=== PATIENT | female | born 1955 | race Caucasian/White ===

== ENCOUNTER 2018-04-01 11:07 | Observation (INO) | payer OTHER ==
[2018-04-01 11:48] LABS: Absolute Lymphocytes (CBC) 2.3 K/uL (0.7-4.9); Absolute Monocytes 0.2 K/uL (0.1-1.3); Absolute Neutrophil 6.1 K/uL (1.8-8.0); Basophils % 0.8 % (0-1.3); Eosinophils % 2.4 % (0-4.4); Hematocrit 41.6 % (36.0-45.0); Lymphocytes % 25.9 % (15.3-44.8); MCH 32.6 pg (27.0-35.0); MCV 94.5 fL (80-100); MPV 7.7 fL (7.6-11.3); Monocytes % 2.5 % (3.3-12.3)
[2018-04-01 12:01] LABS: Protime INR 1.01
--- NOTE | 2018-04-01 12:12 | EKG ---
Test Date: 2018-04-01 Test Time: 11:18:00 Technical Consultant: CATHIE MEASUREMENT RESULTS: Intervals: Rate: 71 GA: 152 QRSD: 90 QT: 408 QTc: 443 Cerrillos: P: 68 GA: 152 QRS: 60 T: 22 INTERPRETIVE STATEMENTS: Normal sinus rhythm Normal ECG Compared to ECG 05/24/2017 11:54:23 No significant changes Electronically Signed On 04-01-18 12:11:49 CDT by Cali Zhang
[2018-04-01 12:18] LABS: ALT/SGPT 18 U/L (12-78); AST/SGOT 16 U/L (15-37); Albumin 3.1 g/dL (3.4-5.0); Alkaline Phosphatase 80 U/L (45-117); BUN Blood Urea Nitrogen 9 mg/dL (7-18); Bicarbonate 27 mmol/L (21-32); Bilirubin Direct 0.1 mg/dL (0-0.2); Bilirubin Total 0.4 mg/dL (0.2-1.0); CKMB Creatine Kinase MB < 1.0 ng/mL (0.3-3.6); Creatine Phosphokinase 32 U/L (26-192); Glucose Level 154 mg/dL (74-106); Magnesium 1.9 mg/dL (1.8-2.4); NT PRO-BNP 131 pg/mL (<125); Potassium 3.5 mmol/L (3.5-5.1); Protein, Total 7.2 g/dL (6.4-8.2); Sodium Level 137 mmol/L (136-145)
--- NOTE | 2018-04-01 12:18 | RAD REPORT ---
EXAM DESCRIPTION: RAD - Chest Single View - 04/01/2018 12:01 pm CLINICAL HISTORY: CHEST PAIN Chest pain. COMPARISON: Chest Pa And Lat (2 Views) dated 07/09/2017; Chest Single View dated 05/28/2017; Chest S korina View dated 05/26/2017; Chest Single View dated 05/24/2017; Ct Low Dose Chest Screening dated FINDINGS: Portable technique limits examination quality. The lungs are grossly clear. The heart is mildly prominent size. No displaced fractures. IMPRESSION: No acute intrathoracic process suspected.
[2018-04-01] MEDS ORDERED: METHYLPREDNISOLONE 125 MG INJ ONE (13:10)
[2018-04-01] MEDS ORDERED: LEVALBUTEROL 1.25 MG/3 ML NEB ONE (13:11)
[2018-04-01] MEDS ORDERED: MAGNESIUM SULFATE 1 gm IVPB 1 GM/100 ML BAG IV ONE (13:11)
[2018-04-01] MEDS ORDERED: CEFTRIAXONE/SWI 1gm 1 GM/10 ML SYR ONE (13:11)
[2018-04-01] MEDS ORDERED: MEPERIDINE HCL 25 MG/0.5 ML ONE ×2 (13:47→16:55)
[2018-04-01] MEDS ORDERED: ONDANSETRON 4 MG/2 ML VIAL ONE (13:47)
--- NOTE | 2018-04-01 15:03 | ER ---
Nurse's Notes [facility] Name: Kary Day Age: 63 yrs Sex: Female : 1955 Arrival Date: 04/01/2018 Time: 11:11 Bed 25 Private MD: Jude Sandra T Diagnosis: COPD Exacerbation, shortness of breath Presentation: 04/01 11:15 Presenting complaint: Patient states: I HAD BAD CHEST PAINS AT 2330 LAST NIGHT, ch SWEATING, NAUSEA. I TOOK MY NITRO AND IT HELPED. RIGHT NOW I AM HAVING SOB, DIZZY, NAUSEOUS, FEEL LIKE AND KIM PANT IS ON MY CHEST, MY BACK AND ARM HURT. Transition of care: patient was not received from another setting of care. Onset of symptoms was March 31, 2018 at 23:30. Risk Assessment: Do you want to hurt yourself or someone else? Patient reports no desire to harm self or others. Initial Sepsis Screen: Does the patient meet any 2 criteria? No. Patient's initial sepsis screen is negative. Does the patient have a suspected source of infection? No. Patient's initial sepsis screen is negative. Care prior to arrival: None. 11:15 Method Of Arrival: Wheelchair 11:15 Acuity: ISACC 2 ch Triage Assessment: 11:18 General: Appears in no apparent distress. uncomfortable, Behavior is calm, cooperative, ch appropriate for age. Pain: Complains of pain in left jaw and chest. Neuro: No deficits noted. Respiratory: Reports shortness of breath Onset: The symptoms/episode began/occurred yesterday, the patient has moderate shortness of breath. Historical: - Allergies: 11:18 Paxil; ch 11:18 Tetanus Vaccines \\T\\ Toxoid; ch 11:18 Zoloft; ch 11:18 Levaquin IV; ch - PMHx: 11:18 Anxiety; CHF; COPD; CVA; Hypertension; Myocardial infarction; precancerous colon ch polyps; CANCER OF APPENDIX; - PSHx: 11:18 Cholecystectomy; Appendectomy; ch - Immunization history:: Adult Immunizations up to date. - Social history:: Smoking status: Patient uses tobacco products, smokes two packs cigarettes per day. - Ebola Screening: : Patient negative for fever greater than or equal to 101.5 degrees Fahrenheit, and additional compatible Ebola Virus Disease symptoms Patient denies exposure to infectious person Patient denies travel to an Ebola-affected area in the 21 days before illness onset No symptoms or risks identified at this time. Screenin:25 Abuse screen: Denies threats or abuse. Denies injuries from another. Nutritional ss screening: No deficits noted. Tuberculosis screening: Never had TB. Fall Risk None identified. Assessment: 12:25 General: Appears in no apparent distress. comfortable, Behavior is calm, cooperative, ss Denies fever, feeling ill, fatigue, chills. Pain: Complains of pain in chest Pain radiates to left arm Pain currently is 3 out of 10 on a pain scale. at worst was 7 out of 10 on a pain scale. Quality of pain is described as aching, tender, Pain began last night, relieved with nitro x 1. Pt states, "I was finally able to go to sleep last night, but when I woke up this morning I was still sore from it and just short of breath." Is continuous. Neuro: Level of Consciousness is awake, alert, obeys commands, Oriented to person, place, time, situation, Speech is normal. Cardiovascular: Rhythm is sinus rhythm. Cardiovascular: Heart tones S1 S2 present Edema is absent. Respiratory: Breath sounds with wheezes bilaterally. Pt has a history of COPD, reports a cough that has been worse lately, is productive. Has been on oral antibiotic therapy and steroids x 6 days for bronchitis. Respiratory: Airway is patent Trachea midline Respiratory effort is even, unlabored, Respiratory pattern is regular, symmetrical. GI: Patient currently denies abdominal pain, diarrhea, vomiting. EENT: Nares are clear Oral mucosa is moist. Derm: Skin is intact, is healthy with good turgor, Skin is dry, Skin is pink, warm \\T\\ dry. normal. Musculoskeletal: Circulation, motion, and sensation intact. Range of motion: intact in all extremities, Swelling absent. 13:30 Reassessment: Patient appears in no apparent distress at this time. Patient and/or kr2 family updated on plan of care and expected duration. Pain level reassessed. Patient is alert, oriented x 3, equal unlabored respirations, skin warm/dry/pink. Patient states feeling better. 14:30 Reassessment: Patient appears in no apparent distress at this time. Patient and/or kr2 family updated on plan of care and expected duration. Pain level reassessed. Patient is alert, oriented x 3, equal unlabored respirations, skin warm/dry/pink. Patient denies pain at this time. 15:30 Reassessment: Patient appears in no apparent distress at this time. Patient is alert, kr2 oriented x 3, equal unlabored respirations, skin warm/dry/pink. 16:29 Reassessment: Patient appears in no apparent distress at this time. Patient and/or kr2 family updated on plan of care and expected duration. Pain level reassessed. Patient is alert, oriented x 3, equal unlabored respirations, skin warm/dry/pink. Patient denies pain at this time. 16:56 Reassessment: Patient complains of returning headache, reported to Dr. Silver, kr2 medicated as ordered, see MAR. 18:30 Reassessment: Patient appears in no apparent distress at this time. Patient and/or kr2 family updated on plan of care and expected duration. Pain level reassessed. Patient is alert, oriented x 3, equal unlabored respirations, skin warm/dry/pink. Patient denies pain at this time. 19:27 Reassessment: Patient appears in no apparent distress at this time. Patient and/or kr2 family updated on plan of care and expected duration. Pain level reassessed. Patient is alert, oriented x 3, equal unlabored respirations, skin warm/dry/pink. Patient denies pain at this time. 20:00 Reassessment: Patient appears in no apparent distress at this time. Patient and/or kr2 family updated on plan of care and expected duration. Pain level reassessed. Patient is alert, oriented x 3, equal unlabored respirations, skin warm/dry/pink. Patient denies pain at this time. Vital Signs: 11:18 BP 116 / 71; Pulse 74; Resp 26; Temp 97.8; Pulse Ox 94% on R/A; Weight 85.28 kg; Height ch 5 ft. 3 in. (160.02 cm); Pain 7/10; 12:30 BP 108 / 60; Pulse 74; Resp 18; Temp 98.8(O); ss 13:30 BP 112 / 54; Pulse 74; Resp 17; Pulse Ox 97% on R/A; kr2 14:30 BP 114 / 69; Pulse 85; Resp 17; Pulse Ox 88% on R/A; kr2 15:30 BP 114 / 64; Pulse 82; Resp 17; Pulse Ox 95% on 2 lpm NC; kr2 16:28 BP 124 / 66; Pulse 81; Resp 19; Pulse Ox 95% on 2 lpm NC; kr2 19:27 BP 124 / 68; Pulse 75; Resp 17; Pulse Ox 95% on 2 lpm NC; kr2 20:15 BP 110 / 68; Pulse 86; Resp 19; Pulse Ox 95% on 2 lpm NC; kr2 11:18 Body Mass Index 33.30 (85.28 kg, 160.02 cm) ch 14:30 Place on NC \\T\\ 2LPM, sat up to 95% kr2 ED Course: 11:11 Patient arrived in ED. sb2 11:12 Jude Sandra MD is Private Physician. sb2 11:17 Triage completed. ch 11:18 Arm band placed on left wrist. Patient placed in waiting room. ch 11:34 EKG done, by electrophysiology technologist. vh 11:42 Initial lab(s) drawn, by oh, sent to lab. Inserted saline lock: 20 gauge in right ch antecubital area, using aseptic technique. Blood collected. 12:00 X-ray completed. Portable x-ray completed in exam room. Patient tolerated procedure mh1 well. 12:00 XRAY Chest (1 view) In Process Unspecified. EDMS 12:13 New Silver MD is Attending Physician. kdr 12:25 Shena Greenberg, AUBREY is Primary Nurse. ss 12:25 Patient has correct armband on for positive identification. Bed in low position. Call ss light in reach. Side rails up X2. pit slagman on. Pulse ox on. NIBP on. Warm blanket given. 15:02 Tesfaye Babb DO is Hospitalizing Provider. kdr 20:27 No provider procedures requiring assistance completed. Patient admitted, IV remains in kr2 place. Administered Medications: 13:15 Drug: SOLU-Medrol 125 mg Route: IVP; Site: right antecubital; kr2 14:00 Follow up: Response: No adverse reaction kr2 13:23 Drug: Xopenex (3) 1.25 mg Route: Inhalation; kr2 15:00 Follow up: Response: No adverse reaction; Marked relief of symptoms kr2 13:23 Drug: Magnesium Sulfate 1 grams Route: IVPB; Infused Over: 1 hrs; Site: right kr2 antecubital; 14:38 Follow up: IV Status: Completed infusion kr2 13:23 Drug: Rocephin - (cefTRIAXone) 1 grams Route: IVPB; Infused Over: 30 mins; Site: right kr2 antecubital; 20:30 Follow up: Response: No adverse reaction; IV Status: Completed infusion kr2 13:45 Drug: Zofran 4 mg Route: IVP; Site: right antecubital; kr2 15:00 Follow up: Response: No adverse reaction kr2 13:48 Drug: Demerol 25 mg Route: IVP; Site: right antecubital; kr2 14:00 Follow up: Response: No adverse reaction; Pain is decreased kr2 16:55 Drug: Demerol 25 mg Route: IVP; Site: right antecubital; kr2 17:15 Follow up: Response: No adverse reaction; Pain is decreased kr2 Outcome: 15:03 Decision to Hospitalize by Provider. kdr 20:27 Admitted to Med/surg accompanied by tech, via stretcher, room 215, with oxygen, with kr2 chart, Report called to Janice 20:27 Condition: stable 20:27 Instructed on the need for admit, Demonstrated understanding of instructions. 20:31 Patient left the ED. kr2 Signatures: Dispatcher [employer] EDMS Medina Pizarro, RN RN New Silver MD MD [facility] Joycelyn Bingham 1 Shena Greenberg RN RN ss Harrell, Venessa vh Reaves, Karey, RN RN kr2 Alexia Mccabe sb2 Corrections: (The following items were deleted from the chart) 20:30 14:00 Response: No adverse reaction kr2 kr2
--- NOTE | 2018-04-01 15:03 | EDPHYS ---
Physician Documentation [facility] Name: Kary Day Age: 63 yrs Sex: Female : 1955 Arrival Date: 04/01/2018 Time: 11:11 Bed 25 Private MD: Jude Sandra T ED Physician New Silver Historical: - Allergies: 04/01 11:18 Paxil; ch 11:18 Tetanus Vaccines \T\ Toxoid; ch 11:18 Zoloft; ch 11:18 Levaquin IV; ch - PMHx: 11:18 Anxiety; CHF; COPD; CVA; Hypertension; Myocardial infarction; precancerous colon ch polyps; CANCER OF APPENDIX; - PSHx: 11:18 Cholecystectomy; Appendectomy; ch - Immunization history:: Adult Immunizations up to date. - Social history:: Smoking status: Patient uses tobacco products, smokes two packs cigarettes per day. - Ebola Screening: : Patient negative for fever greater than or equal to 101.5 degrees Fahrenheit, and additional compatible Ebola Virus Disease symptoms Patient denies exposure to infectious person Patient denies travel to an Ebola-affected area in the 21 days before illness onset No symptoms or risks identified at this time. Vital Signs: 11:18 BP 116 / 71; Pulse 74; Resp 26; Temp 97.8; Pulse Ox 94% on R/A; Weight 85.28 kg; Height ch 5 ft. 3 in. (160.02 cm); Pain 7/10; 12:30 BP 108 / 60; Pulse 74; Resp 18; Temp 98.8(O); ss 13:30 BP 112 / 54; Pulse 74; Resp 17; Pulse Ox 97% on R/A; kr2 14:30 BP 114 / 69; Pulse 85; Resp 17; Pulse Ox 88% on R/A; kr2 15:30 BP 114 / 64; Pulse 82; Resp 17; Pulse Ox 95% on 2 lpm NC; kr2 16:28 BP 124 / 66; Pulse 81; Resp 19; Pulse Ox 95% on 2 lpm NC; kr2 19:27 BP 124 / 68; Pulse 75; Resp 17; Pulse Ox 95% on 2 lpm NC; kr2 20:15 BP 110 / 68; Pulse 86; Resp 19; Pulse Ox 95% on 2 lpm NC; kr2 11:18 Body Mass Index 33.30 (85.28 kg, 160.02 cm) ch 14:30 Place on NC \T\ 2LPM, sat up to 95% kr2 MDM: 15:03 Patient medically screened. kdr 04/01 11:20 Order name: Basic Metabolic Panel; Complete Time: 12:28 04/01 11:20 Order name: CBC with Diff; Complete Time: 12:14 04/01 11:20 Order name: Ckmb; Complete Time: 12:28 04/01 11:20 Order name: CPK; Complete Time: 12:28 04/01 11:20 Order name: LFT's; Complete Time: 12:28 04/01 11:20 Order name: Magnesium; Complete Time: 12:28 04/01 11:20 Order name: NT PRO-BNP; Complete Time: 12:28 04/01 11:20 Order name: PT-INR; Complete Time: 12:14 04/01 11:20 Order name: Ptt, Activated; Complete Time: 12:14 04/01 11:20 Order name: Troponin (emerg Dept Use Only); Complete Time: 14:37 04/01 11:20 Order name: XRAY Chest (1 view); Complete Time: 12:28 04/01 12:35 Order name: Blood Culture Adult (2) kdr 04/01 14:23 Order name: Urine Dipstick--Ancillary (enter results) bd 04/01 11:20 Order name: EKG; Complete Time: 11:21 04/01 11:20 Order name: EKG - Nurse/Tech; Complete Time: 13:53 04/01 11:20 Order name: Cardiac monitoring; Complete Time: 13:52 04/01 11:20 Order name: IV Saline Lock; Complete Time: 13:52 04/01 11:20 Order name: Labs collected and sent; Complete Time: 13:52 04/01 11:20 Order name: O2 Per Protocol; Complete Time: 13:52 04/01 11:20 Order name: O2 Sat Monitoring; Complete Time: 13:52 04/01 11:20 Order name: Urine Dipstick-Ancillary (obtain specimen); Complete Time: 16:44 04/01 18:17 Order name: Diet Heart Healthy; Complete Time: 18:17 kr2 Administered Medications: 13:15 Drug: SOLU-Medrol 125 mg Route: IVP; Site: right antecubital; kr2 14:00 Follow up: Response: No adverse reaction kr2 13:23 Drug: Xopenex (3) 1.25 mg Route: Inhalation; kr2 15:00 Follow up: Response: No adverse reaction; Marked relief of symptoms kr2 13:23 Drug: Magnesium Sulfate 1 grams Route: IVPB; Infused Over: 1 hrs; Site: right kr2 antecubital; 14:38 Follow up: IV Status: Completed infusion kr2 13:23 Drug: Rocephin - (cefTRIAXone) 1 grams Route: IVPB; Infused Over: 30 mins; Site: right kr2 antecubital; 20:30 Follow up: Response: No adverse reaction; IV Status: Completed infusion kr2 13:45 Drug: Zofran 4 mg Route: IVP; Site: right antecubital; kr2 15:00 Follow up: Response: No adverse reaction kr2 13:48 Drug: Demerol 25 mg Route: IVP; Site: right antecubital; kr2 14:00 Follow up: Response: No adverse reaction; Pain is decreased kr2 16:55 Drug: Demerol 25 mg Route: IVP; Site: right antecubital; kr2 17:15 Follow up: Response: No adverse reaction; Pain is decreased kr2 Disposition: 04/01/18 15:03 Hospitalization ordered by Tesfaye Babb for Observation. Preliminary diagnosis is COPD Exacerbation, shortness of breath. - Bed requested for Telemetry/MedSurg (observation). - Status is Observation. kr2 - Condition is Fair. - Problem is new. - Symptoms have improved. UTI on Admission? No Addendum: 04/04/2018 12:00 Addendum: CC: Chest Pain HPI: The patient states that since about 23:30 last night she k has had chest pressure and pain. She has also had nausea, sweating, SOB and dizziness. States that she feels like she has an elephant on her chest. She took one NTG which helped ROS: Const: No fever, chills or weight loss Eyes: no visual changes or c/o, Neck: no pain or injury, CV: She has had CP but no palpitations, Resp: SOB but no cough or congestion, breath sounds CTAB Abd: no v/d or pain, she has had nausea Back: no pain or injury, : no pain or bleeding, MS/Ext: no pain, injury, swelling, tingling, Skin: no lacerations, pain, injury, skin turgor good, Neuro: CN grossly intact and no other deficits, Psych: Appropriate for age, Allergy/Immunology: no rashes or other s/s, Endo: no evidence of polyuria, polydipsia, temperature control or other s/s . Addendum: Exam: Const: WDWN WF in NAD, Head/Face: no injury, pain or deformity, Eyes: PERRLA, ENT: no pain, injury or bleeding, Neck: no pain, injury or deformity, full ROM Chest/Axilla: No pain, injury or deformity, CV: no rubs, gallops, murmurs, regular rate, Resp: CTAB, regular rate, Abd/GI: soft, NT, BS present in all quads and normal, Back: no injury or deformity, full ROM, MS/Extremity: no injury or deformity, FROM, distal pulses good and equal, Skin: no rashes, ecchymosis skin turgor good, Neuro: CN grossly intact, no other neuro deficits, Psych: appropriate for age, no SI/HI, no depression . Addendum: MDM (Admission - stable) All VS and nursing notes reviewed. The patient and/or family was counseled on the results and need for admission. The patient was admitted in stable condition. They were happy with the care received and the plan for admission and further evaluation and treatment. . Signatures: Dispatcher [employer] EDMS Sonia Linares Christina, RN RN New Silver MD MD [facility] Ester Astorga RN RN kr2 Corrections: (The following items were deleted from the chart) 04/01 18:49 15:03 Hospitalization Ordered by Tesfaye Babb DO for Observation. Preliminary bd diagnosis is COPD Exacerbation, shortness of breath. Bed requested for Telemetry/MedSurg (observation). Status is Observation. Condition is Fair. Problem is new. Symptoms have improved. UTI on Admission? No. kdr 19:34 18:49 04/01/2018 15:03 Hospitalization Ordered by Tesfaye Prezas DO for Observation. bd Preliminary diagnosis is COPD Exacerbation, shortness of breath. Bed requested for Telemetry/MedSurg (observation). Status is Observation. Condition is Fair. Problem is new. Symptoms have improved. UTI on Admission? No. bd 20:31 19:34 04/01/2018 15:03 Hospitalization Ordered by Tesfaye Babb DO for Observation. kr2 Preliminary diagnosis is COPD Exacerbation, shortness of breath. Bed requested for Telemetry/MedSurg (observation). Status is Observation. Condition is Fair. Problem is new. Symptoms have improved. UTI on Admission? No. bd
[2018-04-01 15:16] LABS: Urine Blood NEGATIVE (NEG); Urine Glucose NEGATIVE (NEG); Urine Protein NEGATIVE (NEG); Urine pH 6.5 (5.0-7.0)
[2018-04-01] MEDS ORDERED: ALBUTEROL 2.5 MG/3 ML NEB SOL NEB PRN (16:08)
[2018-04-01] MEDS ORDERED: ONDANSETRON 4 MG/2 ML VIAL IV PRN (16:08)
[2018-04-01] MEDS ORDERED: IPRATROPIUM BROM 0.5MG/2.5ML NEB PRN (16:08)
--- NOTE | 2018-04-01 16:32 | P.HP ---
Certification for Inpatient Patient admitted to: Observation With expected LOS: <2 Midnights Patient will require the following post-hospital care: Other Practitioner: I am a practitioner with admitting privileges, knowledge of patient current condition, hospital course, and medical plan of care. Services: Services provided to patient in accordance with Admission requirements found in Title 42 Section 412.3 of the Code of Federal Regulations Patient History Date of Service: 04/01/18 Primary Care Provider: Dr. Sandra; Pulmonary-Dr. Christian; Cardiology-Dr. Dave Reason for admission: Shortness of breath, chest pain History of Present Illness: 63-year-old female presented emergency room with chest pain and shortness of breath. Patient has been having increasing shortness of breath over the past week. Her night manager gave her an antibiotic about 6 days ago. Patient still reports increasing shortness of breath with cough and congestion. She reports pain to the chest likely related to cough. Pain radiates to the back, neck and left arm. Patient has history of COPD on chronic oxygen. Patient also smokes about a half a pack per day. She is trying to quit. Patient came to the ER for further evaluation. In the ER patient was evaluated. Initial blood pressure and vitals stable. Chest x-ray shows no pneumonia. COPD changes noted. On lab white count 8.9, hemoglobin 14. Sodium 137, potassium 3.5, GFR 72. Troponin within normal range. BMP at 131.. Urinalysis unremarkable. Due to the changes in a evaluation. Patient will be admitted for observation. In the ER patient had been given steroid treatment and nebulized treatment. Shortness of breath improved. Patient still with increasing cough and congestion. Allergies paroxetine HCl [From Paxil] Allergy (Unknown, Verified 10/04/15 10:06) unknown sertraline HCl [From Zoloft] Allergy (Unknown, Verified 10/04/15 10:06) unknown Tetanus Vaccines and Toxoid [Tetanus] Allergy (Unknown, Verified 10/04/15 10:06) unknown levofloxacin [From Levaquin] Allergy (Verified 05/26/17 14:36) Itching Home medications list reviewed: Yes Home Medications: Metoprolol Tartrate [Lopressor*] 12.5 mg PO BID 03/04/12 Simvastatin [Zocor] 40 mg PO BEDTIME 03/04/12 Aspirin [Aspirin EC 81 MG] 1 tab PO DAILY 10/04/15 ALPRAZolam [Xanax*] 0.5 mg PO BEDTIME PRN 01/12/16 Famotidine [Pepcid] 1 tab PO DAILY 01/12/16 Codeine/APAP [Tylenol W/Codeine #3 tab] 1 tab PO Q4HP PRN #30 tab 07/09/17 Sulfamethoxazole/Trimethoprim [Bactrim Ds Tablet] 1 each PO BID #10 tablet 07/09 - Past Medical/Surgical History Diabetic: No -: CAD -: COPD -: GERD -: 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 She has 3 children. - Family History Father -: Heart disease, Hypertension, Lung disease, Diabetes, Cancer, Liver disease Mother -: Lung disease - Social History Smoking Status: Heavy Tobacco smoker (>10 cigarettes/day) Counseled patient to stop smoking for: less than 10 minutes Smoking therapy provided: Yes Patient receptive to therapy: Yes Alcohol use: No CD- Drugs: No Caffeine use: Yes Place of Residence: Home Review of Systems General: Weakness, As per HPI Eyes: Unremarkable ENT: Nose Congestion Respiratory: Cough, Shortness of Breath, SOB with Excertion, Wheezing, As per HPI Cardiovascular: Chest Pain, As per HPI Gastrointestinal: Unremarkable Genitourinary: Unremarkable Musculoskeletal: Unremarkable Integumentary: Unremarkable Neurological: Unremarkable Lymphatics: Unremarkable Physical Examination - Physical Exam General: Alert, In no apparent distress, Oriented x3, Cooperative HEENT: Atraumatic, Normocephalic, PERRLA, Other (Increased nasal congestion) Neck: Supple, No Thyromegaly Respiratory: Expiratory wheezes (Bilateral) Cardiovascular: Normal pulses, Regular rate/rhythm Gastrointestinal: Normal bowel sounds, Soft and benign, Non-distended, No tenderness, No masses, No rebound, No guarding Musculoskeletal: No erythema, No tenderness, No warmth Integumentary: No tenderness/swelling, No erythema, No warmth, No cyanosis Neurological: Normal speech, Normal strength at 5/5 x4 extr, Normal tone, Normal affect - Studies Laboratory Data (last 24 hrs) 04/01/18 11:39: PT 11.9, INR 1.01, APTT 29.2 04/01/18 11:39: WBC 8.9, Hgb 14.3, Hct 41.6, Plt Count 225 04/01/18 11:39: Sodium 137, Potassium 3.5, BUN 9, Creatinine 0.80, Glucose 154 H , Magnesium 1.9, Total Bilirubin 0.4, AST 16, ALT 18, Alkaline Phosphatase 80 Assessment and Plan - Problems (Diagnosis) (1) COPD (chronic obstructive pulmonary disease) Current Visit: Yes Status: Acute Plan: Will continue with COPD treatment. Patient uses home oxygen. Will console pulmonology to further evaluate. Such x-ray shows no pneumonia. Will obtain blood and sputum cultures. Anticipate possible discharge within 24-48 hr. Will reassess tomorrow for discharge. Patient may require home health and physical therapy home. Qualifiers: COPD type: COPD with acute exacerbation Qualified Code(s): J44.1 - Chronic obstructive pulmonary disease with (acute) exacerbation (2) Hypertension Current Visit: Yes Status: Chronic Plan: Will verify and restart home medication Qualifiers: Hypertension type: essential hypertension Qualified Code(s): I10 - Essential (primary) hypertension (3) Hyperlipidemia Current Visit: Yes Status: Chronic Plan: Will verify and restart home medication Qualifiers: Hyperlipidemia type: unspecified Qualified Code(s): E78.5 - Hyperlipidemia , unspecified (4) Tobacco abuse Current Visit: Yes Status: Chronic Plan: Tobacco cessation addressed in detail. She is slowly trying to quit. (5) SOB (shortness of breath) Onset Date: 01/12/16 Current Visit: No Status: Acute Plan: Will continue with COPD treatment. Will monitor cardiac enzymes. Will obtain blood and sputum culture. Will recheck chest x-ray in the morning. (6) CAD (coronary artery disease) Onset Date: 05/25/17 Current Visit: No Status: Chronic Plan: Will continue with her medication. Will start DVT prophylaxis. Qualifiers: Discharge Plan: Home Plan to discharge in: 24 Hours - Advance Directives Does patient have a Living Will: No Does patient have a Durable POA for Healthcare: No - Code Status/Comfort Care Code Status Assessed: Yes (Patient full code.) Time Spent Managing Pts Care (In Minutes): 55
[2018-04-01] MEDS ORDERED: METHYLPREDNISOLONE 40 MG INJ IV SCH (17:00)
[2018-04-01] MEDS ORDERED: ATORVASTATIN 20 MG TAB PO SCH (21:00)
[2018-04-01] MEDS: ARFORMOTEROL TARTRATE 15 MCG/2 ML VIAL.NEB NEB SCH (21:35)
[2018-04-01] MEDS: METOPROLOL TAR 25 MG TAB PO SCH (22:11)
[2018-04-01] MEDS: ENOXAPARIN 40 MG/0.4 ML SQ SCH (22:11)
[2018-04-01] MEDS: PANTOPRAZOLE 40MG TABLET PO SCH (22:12)
[2018-04-01] MEDS: ALPRAZOLAM 0.25 MG TABLET PO PRN (22:17)
[2018-04-01 23:07] VITALS: BMI 33.0
[2018-04-01 23:33] LABS: Urine Appearance CLEAR; Urine Bilirubin NEGATIVE (NEG); Urine Blood NEGATIVE (NEG); Urine Color YELLOW; Urine Glucose 3+ (NEG); Urine Protein NEGATIVE (NEG); Urine Specific Gravity 1.025 (1.005-1.030); Urine Urobilinogen 0.2 mg/dL (0.2-1.0); Urine pH 5.5 (5.0-7.0)
[2018-04-01 23:44] LABS: Urine Microscopic Reflex NO UMIC
[2018-04-01] MEDS: METHYLPREDNISOLONE 40 MG INJ IV SCH (23:54)
[2018-04-02] MEDS: ACETAMINOPHEN 500 MG TAB PO PRN ×2 (00:04→09:52)
[2018-04-02] MEDS: BENZONATATE 100 MG CAP PO PRN ×2 (03:20→11:58)
[2018-04-02 05:08] LABS: Absolute Lymphocytes (CBC) 0.7 K/uL (0.7-4.9); Absolute Monocytes 0.1 K/uL (0.1-1.3); Absolute Neutrophil 8.7 K/uL (1.8-8.0); Basophils % 0.6 % (0-1.3); Hematocrit 43.4 % (36.0-45.0); Lymphocytes % 6.9 % (15.3-44.8); MCH 32.7 pg (27.0-35.0); MCV 96.7 fL (80-100); MPV 8.5 fL (7.6-11.3); Monocytes % 0.8 % (3.3-12.3); RBC Red Blood Cell Count 4.49 M/uL (3.86-4.86)
[2018-04-02] MEDS: METOPROLOL TAR 25 MG TAB PO SCH ×2 (05:44→17:17)
[2018-04-02 05:54] LABS: CKMB Creatine Kinase MB 1.2 ng/mL (0.3-3.6)
[2018-04-02 06:00] LABS: Magnesium 2.4 mg/dL (1.8-2.4); Potassium 3.9 mmol/L (3.5-5.1); Thyroid Stimulating Hormone 0.57 uIU/mL (0.36-3.74)
[2018-04-02] MEDS ORDERED: POTASSIUM 25 MEQ EFFERV TAB PO ONE (06:18)
[2018-04-02] MEDS: PANTOPRAZOLE 40MG TABLET PO SCH (06:54)
[2018-04-02] MEDS: ARFORMOTEROL TARTRATE 15 MCG/2 ML VIAL.NEB NEB SCH (07:26)
[2018-04-02 07:33] VITALS: O2SAT 95
--- NOTE | 2018-04-02 08:42 | RAD REPORT ---
EXAM DESCRIPTION: RAD - Chest Pa And Lat (2 Views) - 04/02/2018 6:43 am CLINICAL HISTORY: follow up COPD Chest pain. COMPARISON: Chest Single View dated 04/01/2018; Chest Pa And Lat (2 Views) dated 07/09/2017; Chest Si ngle View dated 05/28/2017; Chest Single View dated 05/26/2017 FINDINGS: Since the prior study, a small opacity has developed in the left lung base posteriorly, pr obably an area of atelectasis or aspiration. The heart is mildly enlarged in size. No displaced fract ures.
[2018-04-02 08:54] LABS: Blood Morphology Comment NOT SEEN (NOT SEEN); Platelet Estimate ADEQ; Urine White Blood Cell Casts OK
[2018-04-02] MEDS: METHYLPREDNISOLONE 40 MG INJ IV SCH (09:36)
[2018-04-02] MEDS: NA CHLORIDE 0.9% 1,000 ML IV SCH ×2 (09:36→18:00)
[2018-04-02] MEDS: ENOXAPARIN 40 MG/0.4 ML SQ SCH (09:36)
--- NOTE | 2018-04-02 12:13 | P.DS ---
Admission Date: 04/01/18 Discharge Date: 04/02/18 Primary Care Provider: Dr. Sandra; Pulmonary-Dr. Christian; Cardiology-Dr. Dave Disposition: DC HOME/HOME HEALTH CARE Discharge Condition: GOOD Reason for Admission: Shortness of breath, chest pain Consultations: Pulmonology-Dr. Christian Procedures: Chest x-ray: COMPARISON: Chest Single View dated 04/01/2018; Chest Pa And Lat (2 Views) dated 07/09/2017; Chest Single View dated 05/28/2017; Chest Single View dated FINDINGS: Since the prior study, a small opacity has developed in the left lung base posteriorly, probably an area of atelectasis or aspiration. The heart is mildly enlarged in size. No displaced fractures - Problems (1) COPD (chronic obstructive pulmonary disease) Onset Date: 04/02/18 Current Visit: Yes Status: Acute Qualifiers: COPD type: COPD with acute exacerbation Qualified Code(s): J44.1 - Chronic obstructive pulmonary disease with (acute) exacerbation (2) Hypertension Onset Date: 04/02/18 Current Visit: Yes Status: Chronic Qualifiers: Hypertension type: essential hypertension Qualified Code(s): I10 - Essential (primary) hypertension (3) Hyperlipidemia Onset Date: 04/02/18 Current Visit: Yes Status: Chronic Qualifiers: Hyperlipidemia type: unspecified Qualified Code(s): E78.5 - Hyperlipidemia , unspecified (4) Tobacco abuse Onset Date: 04/02/18 Current Visit: Yes Status: Chronic (5) SOB (shortness of breath) Onset Date: 01/12/16 Current Visit: No Status: Acute (6) CAD (coronary artery disease) Onset Date: 05/25/17 Current Visit: No Status: Chronic Qualifiers: (7) Renal insufficiency Current Visit: Yes Status: Acute (8) Pneumonia Current Visit: Yes Status: Acute Qualifiers: Pneumonia type: due to unspecified organism Laterality: left Lung location: lower lobe of lung Qualified Code(s): J18.1 - Lobar pneumonia, unspecified organism (9) GERD (gastroesophageal reflux disease) Current Visit: Yes Status: Suspected Brief History of Present Illness: 63-year-old female presented emergency room with chest pain and shortness of breath. Patient has been having increasing shortness of breath over the past week. Her chief optometry service gave her an antibiotic about 6 days ago. Patient still reports increasing shortness of breath with cough and congestion. She reports pain to the chest likely related to cough. Pain radiates to the back, neck and left arm. Patient has history of COPD on chronic oxygen. Patient also smokes about a half a pack per day. She is trying to quit. Patient came to the ER for further evaluation. In the ER patient was evaluated. Initial blood pressure and vitals stable. Chest x-ray shows no pneumonia. COPD changes noted. On lab white count 8.9, hemoglobin 14. Sodium 137, potassium 3.5, GFR 72. Troponin within normal range. BMP at 131.. Urinalysis unremarkable. Due to the changes in a evaluation. Patient will be admitted for observation. In the ER patient had been given steroid treatment and nebulized treatment. Shortness of breath improved. Patient still with increasing cough and congestion. Hospital Course: Patient presented with shortness of breath. Patient with severe COPD with chronic oxygen. Patient had COPD exacerbation with possible left lower lobe pneumonia. Patient responded to therapy well. Patient seen evaluated by pulmonology. At discharge her condition improved. At discharge she will continue with prednisone 20 mg 1 pill twice daily for 5 days then 1 pill once daily for 5 days. She will continue with oxygen to maintain sats above 90%. Patient will also continue with Augmentin 500 mg 1 pill twice daily for 7 days and Tessalon Perles 200 mg 1 pill 3 times a day as needed for cough. Patient continue with her COPD medication, Brovana 1 unit dose twice daily and albuterol /Atrovent 1 unit dose 3 times a day as needed for shortness of breath. Recommendations for the patient follow up with pulmonology in 1 week to monitor her progress and continue her care. Recommendation to recheck chest x-ray in 2- 4 weeks to monitor resolution. Patient has hypertension. She will continue with metoprolol 25 mg 1 pill twice daily. Recommendation is to maintain blood pressures less 150/80. Further adjustment can be done by her PCP. Patient has hyperlipidemia and CAD. Patient continue with Zocor 40 mg 1 pill once daily. Patient may continue with aspirin 81 mg daily as well. Patient has GERD. Will discontinue Pepcid and recommend Protonix 40 mg 1 pill once daily. Patient has anxiety. She will continue with Xanax 0.5 mg 1 pill 3 times a day as needed for anxiety. Patient had mild renal insufficiency likely from dehydration. Recommendation is to recheck lab-BMP in 1 week to monitor progress. Patient did receive IV fluids. Vital Signs/Physical Exam: Temp Pulse Resp BP Pulse Ox 98.6 F 71 18 104/55 L 95 04/02/18 08:00 04/02/18 08:00 04/02/18 08:00 04/02/18 08:00 04/02/18 08:00 General: Alert, In no apparent distress, Oriented x3, Cooperative HEENT: Atraumatic Neck: Supple Respiratory: Expiratory wheezes (Bilateral but improved) Cardiovascular: Normal pulses, Regular rate/rhythm Gastrointestinal: Normal bowel sounds, Soft and benign, Non-distended, No tenderness, No masses, No rebound, No guarding Musculoskeletal: No erythema, No tenderness, No warmth Integumentary: No tenderness/swelling, No erythema, No warmth, No cyanosis Neurological: Normal speech, Normal strength at 5/5 x4 extr, Normal tone, Normal affect Laboratory Data at Discharge: WBC 9.5 K/uL (4.3-10.9) 04/02/18 04:17 Hgb 14.7 g/dL (12.0-15.0) 04/02/18 04:17 Hct 43.4 % (36.0-45.0) 04/02/18 04:17 Plt Count 224 K/uL (152-406) 04/02/18 04:17 PT 11.9 SECONDS (9.5-12.5) 04/01/18 11:39 INR 1.01 04/01/18 11:39 APTT 29.2 SECONDS (24.3-36.9) 04/01/18 11:39 Sodium 134 mmol/L (136-145) L 04/02/18 04:17 Potassium 3.9 mmol/L (3.5-5.1) 04/02/18 04:17 BUN 11 mg/dL (7-18) 04/02/18 04:17 Creatinine 1.30 mg/dL (0.55-1.3) 04/02/18 04:17 Glucose 399 mg/dL (74-106) H 04/02/18 04:17 Magnesium 2.4 mg/dL (1.8-2.4) D 04/02/18 04:17 Total Bilirubin 0.4 mg/dL (0.2-1.0) 04/01/18 11:39 AST 16 U/L (15-37) 04/01/18 11:39 ALT 18 U/L (12-78) 04/01/18 11:39 Alkaline Phosphatase 80 U/L (45-117) 04/01/18 11:39 Troponin I < 0.02 ng/mL (0.0-0.045) 04/02/18 04:17 Home Medications: Metoprolol Tartrate [Lopressor*] 25 mg PO BID 03/04/12 Simvastatin [Zocor] 40 mg PO BEDTIME 03/04/12 ALPRAZolam [Xanax*] 0.5 mg PO TID 01/12/16 Amox/Clavulanate [Augmentin 500-125 mg Tab] 500 mg PO BID #14 tab 04/02/18 Benzonatate [Tessalon Perle*] 200 mg PO TID PRN #20 cap 04/02/18 Pantoprazole [Protonix Tab*] 40 mg PO ACB #30 tab 04/02/18 predniSONE [Deltasone] 20 mg PO SEECOM #15 tab 04/02/18 New Medications: Amox/Clavulanate [Augmentin 500-125 mg Tab] 500 mg PO BID #14 tab Benzonatate [Tessalon Perle*] 200 mg PO TID PRN #20 cap PRN Reason: Cough Pantoprazole [Protonix Tab*] 40 mg PO ACB #30 tab predniSONE [Deltasone] 20 mg PO SEECOM #15 tab Patient Discharge Instructions: 1. Patient will need a follow up with her PCP in 1 week to follow up this hospitalization. 2. Patient presented with shortness of breath. Patient with severe COPD with chronic oxygen. Patient had COPD exacerbation with possible left lower lobe pneumonia. Patient responded to therapy well. Patient seen evaluated by pulmonology. At discharge she will continue with prednisone 20 mg 1 pill twice daily for 5 days then 1 pill once daily for 5 days. She will continue with oxygen to maintain sats above 90%. Patient will also continue with Augmentin 500 mg 1 pill twice daily for 7 days and Tessalon Perles 200 mg 1 pill 3 times a day as needed for cough. Patient 2 continue with her COPD medication, Brovana 1 unit dose twice daily and Albuterol/Atrovent 1 unit dose 3 times a day as needed for shortness of breath. Recommendations for the patient follow up with pulmonology in 1 week to monitor her progress and continue her care. Recommendation to recheck chest x-ray in 2-4 weeks to monitor resolution. 3. Patient has hypertension. She will continue with metoprolol 25 mg 1 pill twice daily. Recommendation is to maintain blood pressures less 150/80. Further adjustment can be done by her PCP. 4. Patient has hyperlipidemia and CAD. Patient continue with Zocor 40 mg 1 pill once daily. Patient may continue with aspirin 81 mg daily as well. 5. Patient has GERD. Will discontinue Pepcid and recommend Protonix 40 mg 1 pill once daily. 6. Patient has anxiety. She will continue with Xanax 0.5 mg 1 pill 3 times a day as needed for anxiety. Diet: AHA Activity: Fall precautions
[2018-04-02 14:29] LABS: Potassium 3.9 mmol/L (3.5-5.1)
[2018-04-02] MEDS ORDERED: D50W 25 GM/50 ML SYRINGE IV PRN (14:45)
[2018-04-02] MEDS ORDERED: GLUCAGON 1 MG/VIAL IM PRN (14:45)
--- NOTE | 2018-04-02 14:52 | P.PN ---
Subjective Date of Service: 04/02/18 Primary Care Provider: Dr. Sandra; Pulmonary-Dr. Christian; Cardiology-Dr. Dave Chief Complaint: Shortness of breath, chest pain Subjective: Improving Physical Examination - Vital Signs Temperature: 98.5 F Blood Pressure: 103/55 Pulse: 64 Respirations: 17 Pulse Ox (%): 91 - Physical Exam General: Alert, In no apparent distress, Oriented x3, Cooperative HEENT: Atraumatic Neck: Supple Respiratory: Expiratory wheezes (Bilateral but improved ) Cardiovascular: Normal pulses, Regular rate/rhythm Gastrointestinal: Normal bowel sounds, Soft and benign, Non-distended, No tenderness, No masses, No rebound, No guarding Musculoskeletal: No erythema, No tenderness, No warmth Integumentary: No tenderness/swelling, No erythema, No warmth, No cyanosis Neurological: Normal speech, Normal strength at 5/5 x4 extr, Normal tone, Normal affect - Studies Medications List Reviewed: Yes Assessment & Plan - Problems (Diagnosis) (1) COPD (chronic obstructive pulmonary disease) Onset Date: 04/02/18 Current Visit: Yes Status: Acute Plan: Will continue with COPD treatment. Patient uses home oxygen. Pulmonology consulted. Chest x-ray shows possible left lower lobe pneumonia. Will start Augmentin. Will consider discharge if improved. Blood sugar was elevated. Will check A1c. Will change Solu-Medrol to oral prednisone. If blood sugar improved by later today then will consider discharge tonight if not tomorrow. Qualifiers: COPD type: COPD with acute exacerbation Qualified Code(s): J44.1 - Chronic obstructive pulmonary disease with (acute) exacerbation (2) Hypertension Onset Date: 04/02/18 Current Visit: Yes Status: Chronic Plan: Continue with home medication Qualifiers: Hypertension type: essential hypertension Qualified Code(s): I10 - Essential (primary) hypertension (3) Hyperlipidemia Onset Date: 04/02/18 Current Visit: Yes Status: Chronic Plan: Continue with home medication Qualifiers: Hyperlipidemia type: unspecified Qualified Code(s): E78.5 - Hyperlipidemia , unspecified (4) Tobacco abuse Onset Date: 04/02/18 Current Visit: Yes Status: Chronic Plan: Tobacco cessation addressed in detail. She is slowly trying to quit. (5) SOB (shortness of breath) Onset Date: 01/12/16 Current Visit: No Status: Acute Plan: Will continue with COPD treatment. Patient with possible left lower lobe pneumonia. Will start Augmentin. Consider discharge later today. (6) CAD (coronary artery disease) Onset Date: 05/25/17 Current Visit: No Status: Chronic Plan: Will continue with her medication. Will start DVT prophylaxis. Qualifiers: (7) Renal insufficiency Current Visit: Yes Status: Acute Plan: Renal function improved. Likely from dehydration. (8) Pneumonia Current Visit: Yes Status: Acute Plan: Left lower lobe pneumonia noted. Will start Augmentin. Qualifiers: Pneumonia type: due to unspecified organism Laterality: left Lung location: lower lobe of lung Qualified Code(s): J18.1 - Lobar pneumonia, unspecified organism (9) GERD (gastroesophageal reflux disease) Current Visit: Yes Status: Suspected Plan: Will start Protonix. (10) Hyperglycemia Current Visit: Yes Status: Acute Plan: Blood sugar elevated. Will recheck blood sugar. Will also check A1c. Patient may have underlying diabetes. Will need to confirm home medications. Will get diabetes better controlled prior to discharge. (11) Obesity Current Visit: Yes Status: Chronic Plan: Will address lifestyle modification education. Qualifiers: Obesity type: due to excess calories Obesity classification: adult class 1 (BMI 30 - 34.9) Serious obesity comorbidity presence: with serious comorbidity Body mass index: BMI 33.0-33.9 Qualified Code(s): E66.09 - Other obesity due to excess calories; Z68.33 - Body mass index (BMI) 33.0-33.9, adult Discharge Plan: Home Plan to discharge in: 24 Hours Time Spent Managing Pts Care (In Minutes): 55
[2018-04-02] MEDS ORDERED: AMOX/K CLAV 500 MG TAB PO SCH (15:00)
[2018-04-02] MEDS ORDERED: predniSONE 20 MG TAB PO SCH (15:00)
[2018-04-02] MEDS ORDERED: INSULIN -REGULAR HUMAN 50 UNIT/0.5 ML ML SQ SCH (16:30)
--- NOTE | 2018-04-02 16:56 | P.DS ---
Admission Date: 04/01/18 Discharge Date: 04/02/18 Primary Care Provider: Dr. Sandra; Pulmonary-Dr. Christian; Cardiology-Dr. Dave Disposition: DC HOME/HOME HEALTH CARE Discharge Condition: GOOD Reason for Admission: Shortness of breath, chest pain - Problems (1) COPD (chronic obstructive pulmonary disease) Onset Date: 04/02/18 Current Visit: Yes Status: Acute Qualifiers: COPD type: COPD with acute exacerbation Qualified Code(s): J44.1 - Chronic obstructive pulmonary disease with (acute) exacerbation (2) Hypertension Onset Date: 04/02/18 Current Visit: Yes Status: Chronic Qualifiers: Hypertension type: essential hypertension Qualified Code(s): I10 - Essential (primary) hypertension (3) Hyperlipidemia Onset Date: 04/02/18 Current Visit: Yes Status: Chronic Qualifiers: Hyperlipidemia type: unspecified Qualified Code(s): E78.5 - Hyperlipidemia , unspecified (4) Tobacco abuse Onset Date: 04/02/18 Current Visit: Yes Status: Chronic (5) SOB (shortness of breath) Onset Date: 01/12/16 Current Visit: No Status: Acute (6) CAD (coronary artery disease) Onset Date: 05/25/17 Current Visit: No Status: Chronic Qualifiers: (7) Renal insufficiency Current Visit: Yes Status: Acute (8) Pneumonia Current Visit: Yes Status: Acute Qualifiers: Pneumonia type: due to unspecified organism Laterality: left Lung location: lower lobe of lung Qualified Code(s): J18.1 - Lobar pneumonia, unspecified organism (9) GERD (gastroesophageal reflux disease) Current Visit: Yes Status: Suspected (10) Hyperglycemia Current Visit: Yes Status: Acute (11) Obesity Current Visit: Yes Status: Chronic Qualifiers: Obesity type: due to excess calories Obesity classification: adult class 1 (BMI 30 - 34.9) Serious obesity comorbidity presence: with serious comorbidity Body mass index: BMI 33.0-33.9 Qualified Code(s): E66.09 - Other obesity due to excess calories; Z68.33 - Body mass index (BMI) 33.0-33.9, adult (12) Diabetes mellitus Current Visit: Yes Status: Acute Qualifiers: Diabetes mellitus type: type 2 Diabetes mellitus alf insulin use: without alf use Diabetes mellitus complication status: with other specified complication Qualified Code(s): E11.69 - Type 2 diabetes mellitus with other specified complication Brief History of Present Illness: 63-year-old female presented emergency room with chest pain and shortness of breath. Patient has been having increasing shortness of breath over the past week. Her facility examiner gave her an antibiotic about 6 days ago. Patient still reports increasing shortness of breath with cough and congestion. She reports pain to the chest likely related to cough. Pain radiates to the back, neck and left arm. Patient has history of COPD on chronic oxygen. Patient also smokes about a half a pack per day. She is trying to quit. Patient came to the ER for further evaluation. In the ER patient was evaluated. Initial blood pressure and vitals stable. Chest x-ray shows no pneumonia. COPD changes noted. On lab white count 8.9, hemoglobin 14. Sodium 137, potassium 3.5, GFR 72. Troponin within normal range. BMP at 131.. Urinalysis unremarkable. Due to the changes in a evaluation. Patient will be admitted for observation. In the ER patient had been given steroid treatment and nebulized treatment. Shortness of breath improved. Patient still with increasing cough and congestion. Hospital Course: Patient presented with shortness of breath. Patient with severe COPD with chronic oxygen. Patient had COPD exacerbation with possible left lower lobe pneumonia. Patient responded to therapy well. Patient seen evaluated by pulmonology. At discharge her condition improved. At discharge she will continue with prednisone 20 mg 1 pill twice daily for 5 days then 1 pill once daily for 5 days. She will continue with oxygen to maintain sats above 90%. Patient will also continue with Augmentin 500 mg 1 pill twice daily for 7 days and Tessalon Perles 200 mg 1 pill 3 times a day as needed for cough. Patient continue with her COPD medication-Ellipta one puff daily and Albuterol 1 unit dose 3 times a day as needed for shortness of breath. Recommendations for the patient follow up with pulmonology in 1 week to monitor her progress and continue her care. Recommendation to recheck chest x-ray in 2-4 weeks to monitor resolution. Patient has hypertension. She will continue with metoprolol 25 mg 1 pill twice daily. Recommendation is to maintain blood pressures less 150/80. Further adjustment can be done by her PCP. Patient has hyperlipidemia and CAD. Patient continue with Zocor 40 mg 1 pill once daily. Patient may continue with aspirin 81 mg daily as well. Patient has GERD. Will discontinue Pepcid and recommend Protonix 40 mg 1 pill once daily. Patient has anxiety. She will continue with Xanax 0.5 mg 1 pill 3 times a day as needed for anxiety. Patient had mild renal insufficiency likely from dehydration. Patient received IV fluids. Improvement of renal function noted prior to discharge. Recommendation is to recheck lab-BMP in 1 week to monitor progress. Patient did have elevated blood sugar. Likely related to steroids. A1c was obtained. Hemoglobin A1c 7.0. Patient likely has underlying diabetes. Will recommend 2000 ADA diet. This will need to be further monitored closely. Recommendation to recheck blood sugar at least twice daily. If blood sugars remain above 140 fasting and greater than 200 after meals then the patient may require medication. Recommendation to follow up with her PCP in 1 week to further address. Vital Signs/Physical Exam: Temp Pulse Resp BP Pulse Ox 98.5 F 64 17 103/55 L 91 04/02/18 14:52 04/02/18 14:52 04/02/18 14:52 04/02/18 14:52 04/02/18 14:52 General: Alert, In no apparent distress, Oriented x3, Cooperative HEENT: Atraumatic Neck: Supple Respiratory: Expiratory wheezes (Bilateral with improvement) Cardiovascular: Normal pulses, Regular rate/rhythm Gastrointestinal: Normal bowel sounds, Soft and benign, Non-distended, No tenderness, No masses, No rebound, No guarding Musculoskeletal: No erythema, No tenderness, No warmth Integumentary: No tenderness/swelling, No erythema, No warmth, No cyanosis Neurological: Normal speech, Normal strength at 5/5 x4 extr, Normal tone, Normal affect Laboratory Data at Discharge: WBC 9.5 K/uL (4.3-10.9) 04/02/18 04:17 Hgb 14.7 g/dL (12.0-15.0) 04/02/18 04:17 Hct 43.4 % (36.0-45.0) 04/02/18 04:17 Plt Count 224 K/uL (152-406) 04/02/18 04:17 PT 11.9 SECONDS (9.5-12.5) 04/01/18 11:39 INR 1.01 04/01/18 11:39 APTT 29.2 SECONDS (24.3-36.9) 04/01/18 11:39 Sodium 135 mmol/L (136-145) L 04/02/18 14:05 Potassium 3.9 mmol/L (3.5-5.1) 04/02/18 14:05 BUN 13 mg/dL (7-18) 04/02/18 14:05 Creatinine 1.10 mg/dL (0.55-1.3) 04/02/18 14:05 Glucose 438 mg/dL (74-106) H* 04/02/18 14:05 Magnesium 2.4 mg/dL (1.8-2.4) D 04/02/18 04:17 Total Bilirubin 0.4 mg/dL (0.2-1.0) 04/01/18 11:39 AST 16 U/L (15-37) 04/01/18 11:39 ALT 18 U/L (12-78) 04/01/18 11:39 Alkaline Phosphatase 80 U/L (45-117) 04/01/18 11:39 Troponin I < 0.02 ng/mL (0.0-0.045) 04/02/18 04:17 Home Medications: RX: Metoprolol Tartrate [Lopressor*] 25 mg PO BID 03/04/12 RX: Simvastatin [Zocor] 40 mg PO BEDTIME 03/04/12 RX: ALPRAZolam [Xanax*] 0.5 mg PO TID 01/12/16 Amox/Clavulanate [Augmentin 500-125 mg Tab] 500 mg PO BID #14 tab 04/02/18 Famotidine [Pepcid] 20 mg PO BID 04/02/18 RX: Albuterol Neb [Proventil 0.083% Neb Soln] 2.5 mg IH QID PRN 04/02/18 RX: Benzonatate [Tessalon Perle*] 200 mg PO TID PRN #20 cap 04/02/18 RX: Pantoprazole [Protonix Tab*] 40 mg PO ACB #30 tab 04/02/18 Umeclidinium [place] [Incruse Ellipta] 62.5 mcg IH Q24H 04/02/18 predniSONE [Deltasone] 20 mg PO SEECOM #15 tab 04/02/18 New Medications: Amox/Clavulanate [Augmentin 500-125 mg Tab] 500 mg PO BID #14 tab predniSONE [Deltasone] 20 mg PO SEECOM #15 tab RX: Benzonatate [Tessalon Perle*] 200 mg PO TID PRN #20 cap PRN Reason: Cough RX: Pantoprazole [Protonix Tab*] 40 mg PO ACB #30 tab Patient Discharge Instructions: 1. Patient will need a follow up with her PCP in 1 week to follow up this hospitalization. 2. Patient presented with shortness of breath. Patient with severe COPD with chronic oxygen. Patient had COPD exacerbation with possible left lower lobe pneumonia. Patient responded to therapy well. Patient seen evaluated by pulmonology. At discharge she will continue with prednisone 20 mg 1 pill twice daily for 5 days then 1 pill once daily for 5 days. She will continue with oxygen to maintain sats above 90%. Patient will also continue with Augmentin 500 mg 1 pill twice daily for 7 days and Tessalon Perles 200 mg 1 pill 3 times a day as needed for cough. Patient to continue with her COPD medication-Ellipta one puff daily, Albuterol 1 unit dose 3 times a day as needed for shortness of breath. Recommendations for the patient follow up with pulmonology in 1 week to monitor her progress and continue her care. Recommendation to recheck chest x-ray in 2- 4 weeks to monitor resolution. 3. Patient has hypertension. She will continue with metoprolol 25 mg 1 pill twice daily. Recommendation is to maintain blood pressures less 150/80. Further adjustment can be done by her PCP. 4. Patient has hyperlipidemia and CAD. Patient continue with Zocor 40 mg 1 pill once daily. Patient may continue with aspirin 81 mg daily as well. 5. Patient has GERD. Will discontinue Pepcid and recommend Protonix 40 mg 1 pill once daily. 6. Patient has anxiety. She will continue with Xanax 0.5 mg 1 pill 3 times a day as needed for anxiety. 7. Patient had mild renal insufficiency likely from dehydration. Patient received IV fluids. Improvement of renal function noted prior to discharge. Recommendation is to recheck lab-BMP in 1 week to monitor progress. 8. Patient did have elevated blood sugar likely related to steroids. A1c was obtained. Hemoglobin A1c 7.0. Patient likely has underlying diabetes. Will recommend 2000 ADA diet. This will need to be further monitored closely. Recommendation to recheck blood sugar at least twice daily. If blood sugars remain above 140 fasting and greater than 200 after meals then the patient may require medication. Recommendation to follow up with her PCP in 1 week to further address. Diet: ADA (2000 ADA) Activity: Fall precautions Time spent managing pt's care (in minutes): 55
[2018-04-02 17:18] VITALS: BP 110/58
[2018-04-02] MEDS: ALPRAZOLAM 0.25 MG TABLET PO PRN (17:35)
[2018-04-02 18:54] VITALS: TEMP 97.8
== END 2018-04-02 18:41 | disposition home health service (06) ==
LOC: ER 11:07 → ERHOLD 15:06 → 2ND 19:59
PROVIDERS: ADMIT Family Medicine; ATTEND Family Medicine
DX: J44.1 Chronic obstructive pulmonary disease with (acute) exacerbation (principal); J44.0 Chronic obstructive pulmonary disease with (acute) lower respiratory infection; J18.9 Pneumonia, unspecified organism; I10 Essential (primary) hypertension; E78.5 Hyperlipidemia, unspecified; I25.10 Atherosclerotic heart disease of native coronary artery without angina pectoris; N28.9 Disorder of kidney and ureter, unspecified; F17.210 Nicotine dependence, cigarettes, uncomplicated; K21.9 Gastro-esophageal reflux disease without esophagitis; R73.9 Hyperglycemia, unspecified; F41.9 Anxiety disorder, unspecified; E66.09 Other obesity due to excess calories; Z68.33 Body mass index [BMI] 33.0-33.9, adult; Z99.81 Dependence on supplemental oxygen; Z88.1 Allergy status to other antibiotic agents; Z88.7 Allergy status to serum and vaccine; Z88.8 Allergy status to other drugs, medicaments and biological substances; Z79.82 Long term (current) use of aspirin
CPT/HCPCS: 36415; 71045; 71046; 80048 ×3; 80076; 81003 ×2; 82550 ×3; 82553 ×3; 82962; 83036; 83735 ×2; 83880; 84443; 84484 ×3; 85025 ×2; 85610; 85730; 87040 ×2; 87070; 87205; 93005; 94640; 96365; 96366; 96368; 96375; 99285; G0378 ×2; J0696; J1650 ×2; J2175 ×2; J2405; J2920 ×2; J2930; J3475; J7030; J7605; J7512

== ENCOUNTER 2018-08-21 06:09 | Inpatient (IN) | payer OTHER ==
[2018-08-19 15:03] LABS: Absolute Lymphocytes (CBC) 3.3 K/uL (0.7-4.9); Absolute Monocytes 0.5 K/uL (0.1-1.3); Absolute Neutrophil 6.7 K/uL (1.8-8.0); Eosinophils % 2.7 % (0-4.4); Hematocrit 45.6 % (36.0-45.0); Lymphocytes % 30.1 % (15.3-44.8); MPV 8.2 fL (7.6-11.3); RBC Red Blood Cell Count 4.86 M/uL (3.86-4.86)
--- NOTE | 2018-08-19 15:46 | RAD REPORT ---
EXAM DESCRIPTION: RAD - Chest Pa And Lat (2 Views) - 08/19/2018 3:37 pm CLINICAL HISTORY: preop Chest pain. COMPARISON: Chest Pa And Lat (2 Views) dated 04/02/2018; Chest Single View dated 04/01/2018; Chest Pa And Lat (2 Views) dated 07/09/2017; Chest Single View dated 05/28/2017 FINDINGS: Mild linear atelectasis is present in the right lung base. The lungs are otherwise mildly emphysematous but clear. The heart is normal in size. No displaced fractures. IMPRESSION: No acute or concerning finding suspected.
[2018-08-21] MEDS ORDERED: Ringers Lactate 1,000 ML IV ONE (06:45)
[2018-08-21] MEDS ORDERED: LIDOCAINE 1% MPF 5 ML VIAL ONE ×2 (06:47→07:30)
[2018-08-21] MEDS ORDERED: PROPOFOL 200 MG/20 ML VIAL IV ONE (07:30)
[2018-08-21] MEDS ORDERED: FENTANYL CITR 100 MCG/2 ML ONE ×2 (07:30→08:50)
[2018-08-21] MEDS ORDERED: MIDAZOLAM HCL 2 MG/2 ML INJ ONE (07:30)
[2018-08-21] MEDS ORDERED: ROCURONIUM 50 MG/5 ML VIAL IV ONE (07:31)
[2018-08-21] MEDS ORDERED: BUPIVACAINE 0.5% PF 10 ML VIAL ONE (07:43)
[2018-08-21] MEDS ORDERED: CEFAZOLIN 1GM (PREMIX IV) 1 GM/50 ML BAG ONE (08:00)
[2018-08-21] MEDS ORDERED: ALBUTEROL 2.5 MG/3 ML NEB SOL ONE (08:17)
[2018-08-21] MEDS ORDERED: ALBUTEROL INHALER 60 PUFF/8 GM IH ONE (08:20)
[2018-08-21] MEDS ORDERED: KETOROLAC 30 MG/ML INJ ONE (08:58)
[2018-08-21] MEDS ORDERED: GLYCOPYRROLATE 0.2 MG/ML SYR ONE ×2 (08:58→09:16)
[2018-08-21] MEDS ORDERED: ONDANSETRON 4 MG/2 ML VIAL ONE (08:58)
[2018-08-21] MEDS ORDERED: NEOSTIGMINE 1 MG/ML -5 ML SYRINGE ONE (08:58)
[2018-08-21] MEDS ORDERED: METOCLOPRAMIDE 10 MG/2mL INJ ONE (08:59)
[2018-08-21] MEDS ORDERED: HYDROCODONE/APAP 7.5/325 MG TAB PO PRN (09:18)
[2018-08-21] MEDS ORDERED: ONDANSETRON 4 MG/2 ML VIAL IV PRN (09:18)
[2018-08-21] MEDS ORDERED: SODIUM CHLORIDE 0.9% 10ML INJ IV PRN (09:18)
--- NOTE | 2018-08-21 09:18 | P.BOP ---
Preoperative diagnosis: incarcerated incisional recurrent ventral hernia, obesity Postoperative diagnosis: same Primary procedure: 1. Open repair incarcerated incisional recurrent ventral hernia with mesh Secondary procedure: 2. Laparoscopic extensive lysis of adhesions Other procedure(s): 3. Removal of previous mesh Estimated blood loss: <20cc Specimen: hernia sac Findings: as above Anesthesia: General Complications: None Implants: ventralight mesh ST 15.2 cm Transferred to: Recovery Room Condition: Good
[2018-08-21] MEDS: MEPERIDINE HCL 50 MG/ML AMP ONE ×2 (09:35→09:42)
[2018-08-21] MEDS: NA CHLORIDE 0.9% 1,000 ML IV SCH ×2 (10:26→22:06)
[2018-08-21 11:00] VITALS: BMI 32.4
[2018-08-21] MEDS: CEFOXITIN/SWI 1gm 1 GM/10 ML SYR IV SCH ×3 (12:37→23:43)
[2018-08-21] MEDS: MORPHINE 4 MG/ML SYR IV PRN ×3 (12:43→22:35)
[2018-08-21] MEDS ORDERED: ALBUTEROL INHALER 60 PUFF/8 GM IH SCH (13:00)
[2018-08-21] MEDS: ALBUTEROL 2.5 MG/3 ML NEB SOL NEB SCH ×2 (14:03→20:55)
[2018-08-21] MEDS: METOPROLOL TAR 25 MG TAB PO SCH (17:06)
[2018-08-21] MEDS: FAMOTIDINE 20 MG TAB PO SCH (22:08)
[2018-08-21] MEDS: ATORVASTATIN 20 MG TAB PO SCH (22:08)
[2018-08-21] MEDS: ALPRAZOLAM 0.5 MG TABLET PO PRN (22:10)
[2018-08-22] MEDS: ALBUTEROL 2.5 MG/3 ML NEB SOL NEB SCH ×5 (02:00→20:56)
[2018-08-22] MEDS: MORPHINE 4 MG/ML SYR IV PRN ×4 (03:58→20:55)
[2018-08-22] MEDS: METOPROLOL TAR 25 MG TAB PO SCH ×2 (05:30→17:09)
[2018-08-22] MEDS: NA CHLORIDE 0.9% 1,000 ML IV SCH ×2 (06:00→16:12)
[2018-08-22 06:27] LABS: Absolute Lymphocytes (CBC) 1.5 K/uL (0.7-4.9); Absolute Monocytes 0.8 K/uL (0.1-1.3); Absolute Neutrophil 9.6 K/uL (1.8-8.0); Basophils % 0.6 % (0-1.3); Eosinophils % 0.8 % (0-4.4); Hematocrit 41.8 % (36.0-45.0); Lymphocytes % 12.3 % (15.3-44.8); MPV 8.1 fL (7.6-11.3); Monocytes % 6.5 % (3.3-12.3); RBC Red Blood Cell Count 4.36 M/uL (3.86-4.86)
[2018-08-22 06:39] LABS: Potassium 4.3 mmol/L (3.5-5.1)
[2018-08-22] MEDS: PANTOPRAZOLE 40 MG INJ IVP SCH (08:28)
[2018-08-22] MEDS: FAMOTIDINE 20 MG TAB PO SCH ×2 (08:28→20:55)
[2018-08-22] MEDS: ALPRAZOLAM 0.5 MG TABLET PO PRN (17:09)
[2018-08-22] MEDS: ATORVASTATIN 20 MG TAB PO SCH (20:55)
--- NOTE | 2018-08-22 21:17 | PN ---
Date of Progress Note: 08/22/2018 Diagnosis: Incisional incarcerated recurrent ventral hernia status post repair with mesh placement a nd mesh removal, extensive lysis of adhesions. History Of Present Illness: She is doing okay. She is still requiring IV pain medication. She is s till not able to tolerate her diet yet. She needs assist to get out of bed. She denies any shortnes s of breath, any chest pain, any fever and any vomiting. No diarrhea. Physical Examination: General: She is awake, alert. No distress. HEENT: Pupils anicteric. Chest: Clear. Abdomen: Softly distended. Intact incisions. Bowel sounds diminished. Extremities: Good capillary refill. Plan: She is not ready to go home yet. We have to advance diet slowly. Ambulation, she is using he r incentive spirometry. We did encourage her to keep the SCDs in place and also encouraged ambulatio n. We most likely will send the patient home tomorrow if we can control her pain. LLUVIA/RICHELLE Voice ID: [id number] Report ID: [id number]
[2018-08-23] MEDS: NA CHLORIDE 0.9% 1,000 ML IV SCH ×3 (02:04→22:00)
[2018-08-23] MEDS: ALBUTEROL 2.5 MG/3 ML NEB SOL NEB SCH ×4 (02:50→20:50)
[2018-08-23] MEDS: MORPHINE 4 MG/ML SYR IV PRN ×4 (02:52→23:24)
[2018-08-23] MEDS: METOPROLOL TAR 25 MG TAB PO SCH ×2 (05:50→17:48)
[2018-08-23] MEDS: PANTOPRAZOLE 40 MG INJ IVP SCH (10:09)
[2018-08-23] MEDS: FAMOTIDINE 20 MG TAB PO SCH ×2 (10:09→22:30)
[2018-08-23] MEDS: ALPRAZOLAM 0.5 MG TABLET PO PRN (17:45)
--- NOTE | 2018-08-23 20:13 | PN ---
Date of Progress Note: 08/23/2018 Status post large recurrent incarcerated ventral hernia repair with mesh placement and extensive lysi s of adhesions. Subjective: This is the case of a 63-year-old patient who comes to us with above diagnosis, underwen t the procedure dictated above. She is improving, although she is not able to tolerate full diet yet , and she is still requiring IV medication for pain control. Review of Systems: Tens points otherwise unremarkable. Physical Examination: General: The patient is awake and alert. No distress. HEENT: Pupils are equal and reactive, anicteric. Neck: Supple. Chest: Bilateral breath sounds. Abdomen: Softly distended. Intact surgical site. Extremities: Good capillary refill. Neurologic: Cranial nerves 2 through 12 grossly within normal limits. Laboratory Data: Blood work shows a WBC count of 12.1 from yesterday. Hemoglobin of 13.6. Plan: She is still requiring IV pain medications, so we cannot send her home, and she is not able to tolerate full diet yet. We are trying to get out of bed with the help of physical therapy and using also incentive spirometry. She wants to stay home today. I agree with her. Tomorrow, she is going to try to go home if she is able to tolerate diet by mouth and if she passes gas. HM/MODL Voice ID: [id number] Report ID: [id number]
[2018-08-23] MEDS: ATORVASTATIN 20 MG TAB PO SCH (22:30)
[2018-08-24] MEDS: ALBUTEROL 2.5 MG/3 ML NEB SOL NEB SCH ×3 (03:06→14:30)
[2018-08-24] MEDS: MORPHINE 4 MG/ML SYR IV PRN ×3 (03:45→15:07)
[2018-08-24] MEDS: METOPROLOL TAR 25 MG TAB PO SCH (06:00)
[2018-08-24] MEDS: NA CHLORIDE 0.9% 1,000 ML IV SCH (08:00)
[2018-08-24] MEDS: PANTOPRAZOLE 40 MG INJ IVP SCH (08:43)
[2018-08-24] MEDS: FAMOTIDINE 20 MG TAB PO SCH (08:43)
[2018-08-24 10:10] VITALS: O2SAT 94
--- NOTE | 2018-08-24 16:10 | P.DS ---
Admission Date: 08/21/18 Discharge Date: 08/24/18 Disposition: ROUTINE DISCHARGE Discharge Condition: GOOD Vital Signs/Physical Exam: Temp Pulse Resp BP Pulse Ox 98.3 F 81 20 107/56 L 92 08/24/18 12:00 08/24/18 12:00 08/24/18 12:00 08/24/18 12:00 08/24/18 12:00 General: Alert, Oriented x3, Cooperative HEENT: PERRLA, EOMI, Sclerae nonicteric Neck: Supple Cardiovascular: No edema, Normal pulses, Normal S1 S2 Gastrointestinal: Normal bowel sounds, Soft and benign, No rebound, No guarding Musculoskeletal: No clubbing, No swelling, No contractures, No erythema, No tenderness, No warmth Integumentary: No erythema, No warmth, No cyanosis Neurological: Normal speech External genitalia: Deferred Rectal: Deferred Laboratory Data at Discharge: WBC 12.1 K/uL (4.3-10.9) H 08/22/18 05:45 Hgb 13.6 g/dL (12.0-15.0) 08/22/18 05:45 Hct 41.8 % (36.0-45.0) 08/22/18 05:45 Plt Count 204 K/uL (152-406) D 08/22/18 05:45 Sodium 139 mmol/L (136-145) 08/22/18 05:45 Potassium 4.3 mmol/L (3.5-5.1) 08/22/18 05:45 BUN 6 mg/dL (7-18) L 08/22/18 05:45 Creatinine 0.82 mg/dL (0.55-1.3) 08/22/18 05:45 Glucose 170 mg/dL (74-106) H 08/22/18 05:45 Home Medications: Metoprolol Tartrate [Lopressor*] 25 mg PO BID 03/04/12 Simvastatin [Zocor] 40 mg PO BEDTIME 03/04/12 ALPRAZolam [Xanax*] 0.5 mg PO TID 01/12/16 Albuterol Neb [Proventil 0.083% Neb Soln] 2.5 mg IH QID PRN 04/02/18 Famotidine [Pepcid] 20 mg PO BID 08/21/18 Hydrocodone/Acetaminophen [Vicodin 5-325 mg Tablet] 1 each PO Q4H PRN #30 tablet 08/24/18 New Medications: Hydrocodone/Acetaminophen [Vicodin 5-325 mg Tablet] 1 each PO Q4H PRN #30 tablet PRN Reason: Pain Patient Discharge Instructions: may take showers with dressing off Diet: AHA Activity: No lifting more than 10 lbs Followup: Demar Calvo MD [ACTIVE - CAN ADMIT] - 1 Week
[2018-08-24 18:16] VITALS: BP 103/56; TEMP 97.9
--- NOTE | 2018-09-09 22:00 | OP ---
Date of Procedure: 08/21/2018 Surgeon: Demar Calvo MD Preoperative Diagnoses: 1.Incarcerated incisional recurrent ventral hernia. 2.Morbid obesity. Postoperative Diagnoses: 1.Incarcerated incisional recurrent ventral hernia. 2.Morbid obesity. Procedures: 1.Open repair of incarcerated incisional recurrent ventral hernia with mesh. 2.Laparoscopic extensive lysis of adhesions. 3.Removal of the previous mesh. Anesthesia: General plus local. Implants: A Ventralight mesh ST 15.2 cm. Indications: This is the case of a 63-year-old patient who [facility] and felt a pop on her abdomen. She is known to have hernia in the past at one point and had to be repaired with mesh. She has been putting some weight in the last few months and also is doing some c oughing and sneezing, mainly happened when she was coughing and squatting down. We noticed the patie nt to have a hernia just next to the previous hernia, but it is now becoming difficult because she br hyun at the connection just below the previous repair. She understands the need for repair. The last time she had surgery done, she had extensive lysis of adhesions. We suspect the same once again. W e will have this repaired for incarcerated incisional recurrent ventral hernia with mesh with possibl e lysis of adhesions. We might have to remove the previous mesh. That will give us this hernia plus the previous the defect that we had before, and we have to compensate for that one and put a bigger piece of mesh since the fascia is not strong enough in her case. She is having pain and discomfort. She wants to have this done. She was advised the importance of losing weight. She is trying. She was advised to seek professional help, but this is too tender at this moment, and she is very concern ed. She wants to have it repaired, and she promised she is going to lose some weight. At the same t padilla, she was advised to discuss with the primary doctor the ways for her to control the cough attacks and also not to do heavy lifting. She understand that this procedure is becoming more complex and a t one point we may not be able to repair this. We asked for her cooperation on it, and she _ she will cooperate. She understands the pros and cons of mesh placement with alternative. She did allow me to use a mesh. She understands most likely we will use a Ventralight mesh, pros and cons o f mesh placement with its use. All the questions were answered to her satisfaction. Benefits, alter natives, and risks of surgery include but are not limited to infection, bleeding, damage to adjacent structures, anesthesia complications, recurrence, chronic pain, chronic numbness, OH, and even . She also understands this may not relieve any symptoms. She might need more than one surgical inte rvention. She signed a consent. The patient understands she may have to be more than 1 day in the h ospital due to the extensive lysis of adhesions and the repair that we might have to do. She underst ood. Description Of Procedure: The patient was brought to the operating room, placed in supine position. Anesthesia was given without complication. Abdominal area was prepped and draped in a sterile fashi on. Marcaine 0.5% was injected for local anesthetic. A sharp incision was made in the middle of haritha t area. We noticed the hernia sac present. This goes be low the area of the previous repair. So, t o repair this, we included the previous repair underway and the fascia needed to be cleane d to be able to anchor this superiorly. So, in that case, we had to go inside the abdomen and notice d extensive intraabdominal adhesions could not be done through the open technique. So, at this momen t, we were going to have a combination of the two. So, we were able to find a place in that area haritha t we could put a Izaiah trocar and then obtained pneumoperitoneum and then we went into the lateral s ides and placed 5-mm trocars under direct visualization in the area with no adhesions. After that, w e proceeded to do the extensive intraabdominal adhesions with the help of the LigaSure. We spent a s ignificant amount of time because we had to get some of the omentum that was attached to the anterior abdominal wall all the way down. The area was taken care of with no bleeding. After we finished th at one, we were able to see the defects little better. We could not do this without removing the pre vious mesh because we had to anchor past that area and had to be in a solid position. So, we removed the pneumoperitoneum and then proceed to go then from the upper side and identified the previous fas jamie edges. We removed the previous mesh. We cleaned the fascia edges. At that moment, we once temo alex took a look at the area of the lysis of adhesions. Looked intact. We cleaned enough to allow the Ventralight mesh 15.2 cm to go nicely against the anterior abdominal wall. So, we proceeded to close the fascia edges, approximated with #2 nylon until defect was completely closed. We just left space there in the middle to allow a closure at the end. At that moment, I took advantage of this opening and dropped the Ventralight mesh on the abdominal cavity a string coming through that all owance in the fascia that we did not tie yet. We were able to obtain pneumoperitoneum, inflate the b alloon of the Ventralight mesh with a perfect apposition of that mesh against the abdominal wall. We proceeded to use Capture fixation device to fixate the area nice and flat against the peritoneum. T he balloon was deflated and removed through one of the trocar sites intact. We further fixed the are a with Capture fixation device. The mesh looked nice and flat. At that moment, we proceeded to chec k the area of the lysis of adhesions, looked intact. Intestines looked intact. So, at that moment, I proceeded to deflate pneumoperitoneum. Finished closing the fascia with #2 nylon. The area was ir rigated. Subcutaneous tissue was closed with 3-0 chromic and 0 chromic since the patient had a lot o f empty space in the subcutaneous tissue, and then the skin with skin arie. Sponge count and inst rument counts were correct. The patient tolerated the procedure well. The patient was sent to [facility] in stable condition. We suspect the patient will be in a lot of pain that will require IV antibiotics. She does not want go home anyway. We expect also an ileus on her. So, in that case, we are going to be admitting the patient to the hospital for pain control and IV fluids until she is able to tolerate diet and will be able to tolerate pain medication by mouth. LLUVIA/RICHELLE Voice ID: [id number] Report ID: [id number]
== END 2018-08-24 18:47 | disposition home or self-care (01) | DRG 337 ==
LOC: OR 06:09 → 4TH 09:22
PROVIDERS: ADMIT Surgery; ATTEND Surgery
PROC: 0WUF0JZ Supplement Abdominal Wall with Synthetic Substitute, Open Approach (ICD-10-PCS; 2018-08-21)
PROC: 0WPF0JZ Removal of Synthetic Substitute from Abdominal Wall, Open Approach (ICD-10-PCS; 2018-08-21)
PROC: 0DNW4ZZ Release Peritoneum, Percutaneous Endoscopic Approach (ICD-10-PCS; principal; 2018-08-21 07:30)
DX: K43.0 Incisional hernia with obstruction, without gangrene (principal); I10 Essential (primary) hypertension; Z86.73 Personal history of transient ischemic attack (TIA), and cerebral infarction without residual deficits; I25.2 Old myocardial infarction; F17.210 Nicotine dependence, cigarettes, uncomplicated; Z85.89 Personal history of malignant neoplasm of other organs and systems; E66.9 Obesity, unspecified
CPT/HCPCS: 36415; 71046; 80048; 85025; 88302; 94640; 97116; 97163; C9113; J0690; J2175; J2250; J2405; J2704; J2710; J2765; J3010; J7030

== ENCOUNTER 2022-01-13 14:54 | Inpatient (IN) | payer OTHER ==
[2022-01-13 15:40] LABS: Urine Blood Negative (Negative); Urine Glucose Negative (Negative); Urine Protein Negative (Negative); Urine pH 6.5 (5.0-7.0)
[2022-01-13 16:52] LABS: Absolute Lymphocytes (CBC) 1.2 K/uL (0.7-4.9); Hematocrit 44.6 % (36.0-45.0); Lymphocytes % 12.6 % (15.3-44.8); MPV 7.3 fL (7.6-11.3); RBC Red Blood Cell Count 4.67 M/uL (3.86-4.86)
--- NOTE | 2022-01-13 17:00 | RAD REPORT ---
EXAM DESCRIPTION: RAD - Chest Single View - 01/13/2022 4:52 pm CLINICAL HISTORY: COUGH Chest pain. COMPARISON: Chest Pa And Lat (2 Views) dated 06/20/2021; Chest Pa And Lat (2 Views) dated 08/19/2018; C hest Pa And Lat (2 Views) dated 04/02/2018; Chest Single View dated 04/01/2018 FINDINGS: Portable technique limits examination quality. The lungs are grossly clear. The heart is mildly enlarged in size. No displaced fractures. IMPRESSION: No acute intrathoracic process suspected.
[2022-01-13 17:15] LABS: Albumin 3.5 g/dL (3.4-5.0); Bilirubin Direct 0.1 mg/dL (0-0.2); Bilirubin Total 0.4 mg/dL (0.2-1.0); Potassium 4.2 mmol/L (3.5-5.1); Protein, Total 7.4 g/dL (6.4-8.2); Troponin High Sensitivity 7.9 pg/mL (<58.9)
[2022-01-13] MEDS ORDERED: COLLAGENASE 30 GM OINTMENT TOP ONE (17:15)
--- NOTE | 2022-01-13 17:18 | ER ---
Nurse's Notes [facility] Name: Kary Day Age: 66 yrs Sex: Female : 1955 Arrival Date: 01/13/2022 Time: 14:55 Bed 15 Private MD: Diagnosis: Dermatitis, unspecified;Cellulitis and acute lymphangitis of trunk;Vomiting;Hidradenitis suppurativa;Hyperglycemia, unspecified Presentation: 01/13 15:17 Chief complaint: Patient states: Rash under Left breast x 8 days; appears to be red, vg1 tender and appears to have discharge. Pt states Dr Sandra prescribed Nystatin cream to be placed and pt states 'its not working'. Also states N/V began today. Coronavirus screen: Vaccine status: Patient reports receiving the 2nd dose of the covid vaccine. Client denies travel out of the [place] in the last 14 days. Ebola Screen: Patient denies exposure to infectious person. Patient denies travel to an Ebola-affected area in the 21 days before illness onset. Initial Sepsis Screen: Does the patient meet any 2 criteria? No. Patient's initial sepsis screen is negative. Does the patient have a suspected source of infection? No. Patient's initial sepsis screen is negative. Risk Assessment: Do you want to hurt yourself or someone else? Patient reports no desire to harm self or others. Onset of symptoms was January 05, 2022. 15:17 Method Of Arrival: Wheelchair vg1 15:17 Acuity: ISACC 3 vg1 Triage Assessment: 15:19 General: Appears uncomfortable, Behavior is crying. Pain: Complains of pain in left vg1 breast Pain currently is 10 out of 10 on a pain scale. GI: Reports nausea, vomiting. Historical: - Allergies: 15:19 Levaquin IV; vg1 15:19 Paxil; vg1 15:19 Tetanus Vaccines \T\ Toxoid; vg1 15:19 Zoloft; vg1 - Home Meds: 15:19 Xanax Oral [Active]; Metoprolol Tartrate Oral [Active]; Omeprazole Oral [Active]; vg1 - PMHx: 15:19 Anxiety; CANCER OF APPENDIX; CHF; COPD; CVA; Hypertension; Myocardial infarction; vg1 precancerous colon polyps; - Immunization history:: Client reports receiving the 2nd dose of the Covid vaccine. - Social history:: Smoking status: Patient reports the use of cigarette tobacco products, smokes one-half pack cigarettes per day. - Family history:: not pertinent. Screenin:09 Abuse screen: Denies threats or abuse. Nutritional screening: No deficits noted. ap3 Tuberculosis screening: No symptoms or risk factors identified. Fall Risk None identified. Assessment: 17:08 Reassessment: Patient and/or family updated on plan of care and expected duration. Pain ap3 level reassessed. Patient is alert, oriented x 3, equal unlabored respirations, skin warm/dry/pink. General: Appears uncomfortable. Pain: Complains of pain in left lateral anterior chest and left breast. Neuro: Level of Consciousness is awake, alert, obeys commands, Oriented to person, place, time, situation, Speech is normal. Cardiovascular: Patient's skin is warm and dry. Respiratory: Airway is patent Respiratory effort is even, unlabored, Respiratory pattern is regular, symmetrical. Derm: Skin is moist, Wound noted left breast. Vital Signs: 15:17 BP 117 / 86; Pulse 75; Resp 20; Temp 99.0(O); Pulse Ox 97% on R/A; Weight 70.31 kg; vg1 Height 5 ft. 2 in. (157.48 cm); Pain 10/10; 17:15 BP 135 / 64; Pulse 54; Pulse Ox 98% ; ap3 18:21 BP 129 / 60; Pulse 60; Pulse Ox 95% on R/A; ap3 15:17 Body Mass Index 28.35 (70.31 kg, 157.48 cm) vg1 ED Course: 14:55 Patient arrived in ED. jj6 15:19 Triage completed. vg1 15:19 Arm band placed on. vg1 15:23 Patient placed in an exam room, on a stretcher. ll1 15:26 Kirk Baker MD is Attending Physician. parth 15:39 Barb Cardona, AUBREY is Primary Nurse. ap3 15:43 Urine collected: clean catch specimen, clear. tm3 16:37 Inserted saline lock: 20 gauge in right antecubital area, using aseptic technique. ap3 Blood collected. 16:54 XRAY Chest (1 view) In Process Unspecified. EDMS 17:08 Consulted physician to see patient. ED physician to see patient. ap3 17:09 Patient has correct armband on for positive identification. Bed in low position. Call ap3 light in reach. Side rails up X2. Adult w/ patient. managing consultant clinical professor on. Pulse ox on. NIBP on. Door closed. Noise minimized. 17:16 Mian Reece is Hospitalizing Provider. parth 18:23 No provider procedures requiring assistance completed. Patient admitted, IV remains in ap3 place. Administered Medications: 16:37 Drug: Zofran (Ondansetron) 4 mg Route: IVP; Site: right antecubital; ap3 18:22 Follow up: Response: No adverse reaction ap3 16:38 Drug: NS 0.9% 1000 ml Route: IV; Rate: 1 bolus; Site: right antecubital; ap3 16:38 Drug: morphine 2 mg Route: IV; Rate: per protocol; Site: right antecubital; ap3 18:07 Follow up: Response: No adverse reaction; Pain is decreased ap3 17:13 Not Given (Duplicate Order): Ancef (cefazolin) 2 grams IVPB once over 30 mins; (mix in parth 100 mL NS) 17:14 Not Given (Duplicate Order): Santyl (collagenase) Ointment 250 unit/g 1 application [facility] Topical once 17:39 Drug: Unasyn (ampicillin-sulbactam) 3 grams Route: IVPB; Infused Over: 30 mins; Site: ap3 right antecubital; 18:22 Follow up: Response: No adverse reaction; IV Status: Completed infusion ap3 17:39 Drug: Lidocaine Gel 2 % 1 application Route: Mucous Membrane; ap3 18:21 Follow up: Response: No adverse reaction ap3 18:07 Drug: Silvadene (silver sulfADIAZINE) Cream 1 % 1 application Route: Topical; Site: ap3 affected area; Medication: 17:09 VIS not applicable for this client. ap3 Outcome: 17:17 Decision to Hospitalize by Provider. parth 18:23 Admitted to ER Hold. Please see [facility] for further documentation. ap3 18:23 Condition: stable 18:23 Discharge instructions given to patient, family, Instructed on the need for admit, Demonstrated understanding of instructions. 22:58 Patient left the ED. vc1 Signatures: Dispatcher [employer] EDEze Garcia tm3 Kirk Baker MD MD cha Prokisch, Amanda RN RN ap3 Leigh Flores RN RN vg1 Florentino Driver, RN RN ll1 Selma Saba jj6 Juhi Leal RN RN vc1 Corrections: (The following items were deleted from the chart) 15:21 15:17 Chief complaint: Patient states: Rash under Left breast x 8 days; appears to be vg1 red, tender and appears to have discharge. Pt states Dr Sandra prescribed Nystatin cream to be placed and pt states 'its not working'. vg1
--- NOTE | 2022-01-13 17:19 | EDPHYS ---
Physician Documentation [facility] Name: Kary Day Age: 66 yrs Sex: Female : 1955 Arrival Date: 01/13/2022 Time: 14:55 Bed 15 Private MD: ED Physician Kirk Baker HPI: 01/13 16:41 This 66 yrs old Female presents to ER via Wheelchair with complaints of Rash parth under left breast, nausea/vomitting, headache, low grade fever. 16:41 The patient presents with cellulitis of the left lateral anterior chest. Description: parth draining, erythematous, raised, warm. Onset: The symptoms/episode began/occurred 3 week(s) ago. Possible cause(s): unknown. pain under left breast, red and tender, draining. Modifying factors: the symptoms are alleviated by remaining still, the symptoms are aggravated by pressure, sitting, touching. Severity of symptoms: At their worst the symptoms were moderate, in the emergency department the symptoms are unchanged. Historical: - Allergies: 15:19 Levaquin IV; vg1 15:19 Paxil; vg1 15:19 Tetanus Vaccines \\T\\ Toxoid; vg1 15:19 Zoloft; vg1 - Home Meds: 15:19 Xanax Oral [Active]; Metoprolol Tartrate Oral [Active]; Omeprazole Oral [Active]; vg1 - PMHx: 15:19 Anxiety; CANCER OF APPENDIX; CHF; COPD; CVA; Hypertension; Myocardial infarction; vg1 precancerous colon polyps; - Immunization history:: Client reports receiving the 2nd dose of the Covid vaccine. - Social history:: Smoking status: Patient reports the use of cigarette tobacco products, smokes one-half pack cigarettes per day. - Family history:: not pertinent. ROS: 16:41 Constitutional: Negative for fever, chills, and weight loss, Eyes: Negative for injury, parth pain, redness, and discharge, ENT: Negative for injury, pain, and discharge, Neck: Negative for injury, pain, and swelling, Cardiovascular: Negative for chest pain, palpitations, and edema, Respiratory: Negative for shortness of breath, cough, wheezing, and pleuritic chest pain, Abdomen/GI: Negative for abdominal pain, nausea, vomiting, diarrhea, and constipation, Back: Negative for injury and pain, : Negative for injury, bleeding, discharge, and swelling, MS/Extremity: Negative for injury and deformity, Neuro: Negative for headache, weakness, numbness, tingling, and seizure, Psych: Negative for depression, anxiety, suicide ideation, homicidal ideation, and hallucinations, Allergy/Immunology: Negative for hives, rash, and allergies, Endocrine: Negative for neck swelling, polydipsia, polyuria, polyphagia, and marked weight changes, Hematologic/Lymphatic: Negative for swollen nodes, abnormal bleeding, and unusual bruising. 16:41 Skin: Positive for erythema, rash, swelling, of the left lateral anterior chest. Exam: 16:41 Constitutional: This is a well developed, well nourished patient who is awake, alert, parth and in no acute distress. Head/Face: Normocephalic, atraumatic. Eyes: Pupils equal round and reactive to light, extra-ocular motions intact. Lids and lashes normal. Conjunctiva and sclera are non-icteric and not injected. Cornea within normal limits. Periorbital areas with no swelling, redness, or edema. ENT: Nares patent. No nasal discharge, no septal abnormalities noted. Tympanic membranes are normal and external auditory canals are clear. Oropharynx with no redness, swelling, or masses, exudates, or evidence of obstruction, uvula midline. Mucous membranes moist. Neck: Trachea midline, no thyromegaly or masses palpated, and no cervical lymphadenopathy. Supple, full range of motion without nuchal rigidity, or vertebral point tenderness. No Meningismus. Chest/axilla: Normal chest wall appearance and motion. Nontender with no deformity. No lesions are appreciated. Cardiovascular: Regular rate and rhythm with a normal S1 and S2. No gallops, murmurs, or rubs. Normal PMI, no JVD. No pulse deficits. Respiratory: Lungs have equal breath sounds bilaterally, clear to auscultation and percussion. No rales, rhonchi or wheezes noted. No increased work of breathing, no retractions or nasal flaring. Abdomen/GI: Soft, non-tender, with normal bowel sounds. No distension or tympany. No guarding or rebound. No evidence of tenderness throughout. Back: No spinal tenderness. No costovertebral tenderness. Full range of motion. Female : Normal external genitalia. MS/ Extremity: Pulses equal, no cyanosis. Neurovascular intact. Full, normal range of motion. Neuro: Awake and alert, GCS 15, oriented to person, place, time, and situation. Cranial nerves II-XII grossly intact. Motor strength 5/5 in all extremities. Sensory grossly intact. Cerebellar exam normal. Normal gait. Psych: Awake, alert, with orientation to person, place and time. Behavior, mood, and affect are within normal limits. 16:41 Skin: cellulitis, that is mild, induration, that is mild is noted, rash can be described as erythematous, excoriated, raised. 17:41 ECG was reviewed by the Attending Physician. [facility] Vital Signs: 15:17 BP 117 / 86; Pulse 75; Resp 20; Temp 99.0(O); Pulse Ox 97% on R/A; Weight 70.31 kg; vg1 Height 5 ft. 2 in. (157.48 cm); Pain 10/10; 17:15 BP 135 / 64; Pulse 54; Pulse Ox 98% ; ap3 18:21 BP 129 / 60; Pulse 60; Pulse Ox 95% on R/A; ap3 15:17 Body Mass Index 28.35 (70.31 kg, 157.48 cm) vg1 MDM: 15:26 Patient medically screened. parth 16:45 Differential diagnosis: abscess, allergic reaction, cellulitis. Data reviewed: vital parth signs, nurses notes, lab test result(s), EKG, radiologic studies, plain films. Data interpreted: hearing aid technician: rate is 75 beats/min, rhythm is regular. Test interpretation: by ED physician or midlevel provider: ECG, plain radiologic studies. Counseling: I had a detailed discussion with the patient and/or guardian regarding: the historical points, exam findings, and any diagnostic results supporting the discharge/admit diagnosis, lab results, radiology results. 01/13 15:41 Order name: Urine Dipstick-Ancillary; Complete Time: 16:21 EDWI 01/13 16:23 Order name: Basic Metabolic Panel; Complete Time: 18:29 [facility] 01/13 16:23 Order name: CBC with Diff; Complete Time: 18:29 [facility] 01/13 16:23 Order name: LFT's; Complete Time: 18:29 [facility] 01/13 16:23 Order name: Magnesium; Complete Time: 18:29 [facility] 01/13 16:23 Order name: NT PRO-BNP; Complete Time: 18:29 [facility] 01/13 16:23 Order name: PT-INR; Complete Time: 03:06 [facility] 01/13 16:23 Order name: Troponin HS; Complete Time: 18:29 [facility] 01/13 16:23 Order name: XRAY Chest (1 view); Complete Time: 18:29 [facility] 01/13 16:23 Order name: Lipase; Complete Time: 18:29 [facility] 01/13 18:26 Order name: SARS-COV-2 RT PCR (Document "Date of Onset" if Symptomatic) 01/13 21:03 Order name: SARS-COV-2 RT PCR; Complete Time: 03:06 EDMS 01/13 16:23 Order name: EKG; Complete Time: 16:24 [facility] 01/13 16:23 Order name: Cardiac monitoring; Complete Time: 17:40 [facility] 01/13 16:23 Order name: EKG - Nurse/Tech; Complete Time: 17:40 [facility] 01/13 16:23 Order name: IV Saline Lock; Complete Time: 16:28 [facility] 01/13 16:23 Order name: Labs collected and sent; Complete Time: 16:38 [facility] 01/13 16:23 Order name: O2 Per Protocol; Complete Time: 16:38 [facility] 01/13 16:23 Order name: O2 Sat Monitoring; Complete Time: 16:38 [facility] 01/13 16:23 Order name: Wound Care; Complete Time: 18:21 parth EC:41 Rate is 49 beats/min. Rhythm is regular. QRS [place] is Normal. ID interval is normal. QRS parth interval is normal. QT interval is normal. No Q waves. T waves are Normal. No ST changes noted. Clinical impression: Sinus bradycardia and No evidence of ischemia. Interpreted by me. Reviewed by me. Administered Medications: 16:37 Drug: Zofran (Ondansetron) 4 mg Route: IVP; Site: right antecubital; ap3 18:22 Follow up: Response: No adverse reaction ap3 16:38 Drug: NS 0.9% 1000 ml Route: IV; Rate: 1 bolus; Site: right antecubital; ap3 16:38 Drug: morphine 2 mg Route: IV; Rate: per protocol; Site: right antecubital; ap3 18:07 Follow up: Response: No adverse reaction; Pain is decreased ap3 17:13 Not Given (Duplicate Order): Ancef (cefazolin) 2 grams IVPB once over 30 mins; (mix in parth 100 mL NS) 17:14 Not Given (Duplicate Order): Santyl (collagenase) Ointment 250 unit/g 1 application parth Topical once 17:39 Drug: Unasyn (ampicillin-sulbactam) 3 grams Route: IVPB; Infused Over: 30 mins; Site: ap3 right antecubital; 18:22 Follow up: Response: No adverse reaction; IV Status: Completed infusion ap3 17:39 Drug: Lidocaine Gel 2 % 1 application Route: Mucous Membrane; ap3 18:21 Follow up: Response: No adverse reaction ap3 18:07 Drug: Silvadene (silver sulfADIAZINE) Cream 1 % 1 application Route: Topical; Site: ap3 affected area; Disposition Summary: 01/13/22 17:17 Hospitalization Ordered Hospitalization Status: Inpatient Admission parth Provider: Mian Reece cha Location: Telemetry/MedSurg (Inpatient) parth Condition: Stable parth Problem: new parth Symptoms: have improved parth Bed/Room Type: Standard [facility] Room Assignment: [id number](01/13/22 21:21) bb Diagnosis - Dermatitis, unspecified parth - Cellulitis and acute lymphangitis of trunk parth - Vomiting parth - Hidradenitis suppurativa parth - Hyperglycemia, unspecified parth Forms: - Medication Reconciliation Form parth - SBAR form parth Signatures: Dispatcher [employer] EDKirk Alvarado MD MD cha Ballard, Brenda RN RN bb Barb Cardona RN RN ap3 Leigh Flores RN RN vg1 Katerine Celaya PA PA sb3 Corrections: (The following items were deleted from the chart) 21:21 17:17 parth bb
[2022-01-13] MEDS ORDERED: CEFAZOLIN 2 GM in NA CHLORIDE 0.9% 100 ML IVPB ONE (18:00)
[2022-01-13 19:27] LABS: Protime INR 0.98
[2022-01-13] MEDS ORDERED: CEFEPIME 1 GM in NA CHLORIDE 0.9% 100 ML IV SCH (21:00)
[2022-01-13] MEDS ORDERED: ONDANSETRON 4 MG/2 ML VIAL IV PRN (21:29)
[2022-01-13] MEDS ORDERED: ACETAMINOPHEN 500 MG TAB PO PRN (21:29)
[2022-01-13] MEDS ORDERED: VANCOMYCIN 1 GM in NA CHLORIDE 0.9% 250 ML IVPB SCH (21:29)
[2022-01-13] MEDS: MORPHINE 2 MG/ML SYR IV PRN (21:37)
[2022-01-13] MEDS ORDERED: MORPHINE 2 MG/ML SYR ONE (21:38)
[2022-01-13] MEDS ORDERED: VANCOMYCIN 1.25 GM in NA CHLORIDE 0.9% 250 ML IVPB SCH (22:00)
--- NOTE | 2022-01-13 22:17 | P.HP ---
Certification for Inpatient Patient admitted to: Inpatient With expected LOS: <2 Midnights Patient will require the following post-hospital care: None Practitioner: I am a practitioner with admitting privileges, knowledge of patient current condition, hospital course, and medical plan of care. Services: Services provided to patient in accordance with Admission requirements found in Title 42 Section 412.3 of the Code of Federal Regulations Patient History Date of Service: 01/13/22 Reason for admission: Cellulitus History of Present Illness: Patient is a 66-year-old female with PMH of CHF, COPD, hypertension, CVA who presented to the ED with complaints of a rash under her left breast for 8 days. She describes it as red, tender and with discharge. Dr. Sandra prescribed nystatin cream which has not been helping. She also reports nausea and vomiting. Labs within normal limits. She was given Zofran, 1 L fluid, morphine, Unasyn, and wound care in ED. Patient will be admitted to hospitalist for IV antibiotics and general surgery consult. Allergies paroxetine HCl [From Paxil] Allergy (Mild, Verified 01/14/22 01:06) unknown sertraline HCl [From Zoloft] Allergy (Unknown, Verified 01/14/22 01:05) unknown Tetanus Vaccines and Toxoid [Tetanus] Allergy (Unknown, Verified 01/13/22 23:46) unknown levofloxacin [From Levaquin] Allergy (Verified 01/13/22 23:46) Itching Levaquin IV Allergy (Mild, Uncoded 01/14/22 01:06) Itching Home Medications: Metoprolol Tartrate [Lopressor*] 25 mg PO BID 03/04/12 Simvastatin [Zocor] 40 mg PO BEDTIME 03/04/12 ALPRAZolam [Xanax*] 0.5 mg PO TID 01/12/16 Albuterol Neb [Proventil 0.083% Neb Soln] 2.5 mg IH QID PRN 04/02/18 Famotidine [Pepcid] 20 mg PO BID 04/02/18 - Past Medical/Surgical History Diabetic: No -: HTN -: COPD -: Stroke -: [place] -: Hernia -: Anxiety -: Hyperlipidemia -: Hernia lower right abdomen x2 -: Cholecystectomy -: Appendectomy related to cancer -: Partial Hysterectomy -: Rotator cuff surgery rt shoulder -: Polypectomy Psychosocial/ Personal History: The patient is . She has 3 children. - Family History Father -: Heart disease, Hypertension, Lung disease, Diabetes, Cancer, Liver disease Notes: throat cancer Mother -: Lung disease, Cancer Sister -: Lung disease, Cancer Notes: Lung Cancer - Social History Smoking Status: Current every day smoker Alcohol use: No CD- Drugs: No Caffeine use: Yes Place of Residence: Home Review of Systems Gastrointestinal: Nausea, Vomiting Integumentary: As per HPI Physical Examination - Vital Signs Respirations: 16 Pulse Ox (%): 60 - Physical Exam General: Alert, In no apparent distress HEENT: Atraumatic, PERRLA, EOMI, Sclerae nonicteric Neck: Supple, 2+ carotid pulse no bruit, No LAD, Without JVD or thyroid abnormality Respiratory: Clear to auscultation bilaterally, Normal air movement Cardiovascular: Regular rate/rhythm, Normal S1 S2 Gastrointestinal: Normal bowel sounds, No tenderness Musculoskeletal: No tenderness Integumentary: Tenderness/swelling, Erythema, Warmth, Other (Dermatitis/cellulitis under left breast) Neurological: Normal gait, Normal speech, Normal strength at 5/5 x4 extr, Normal tone, Normal affect - Studies Laboratory Data (last 24 hrs) 01/13/22 16:39: WBC 9.3, Hgb 15.0, Hct 44.6, Plt Count 228 01/13/22 16:39: Sodium 136, Potassium 4.2, BUN 12, Creatinine 1.03, Glucose 169 H, Magnesium 2.0, Total Bilirubin 0.4, AST 11 L, ALT 22, Alkaline Phosphatase 57, Lipase 96 Assessment and Plan - Problems (Diagnosis) (1) Cellulitis of left breast Current Visit: Yes Status: Acute (2) COPD (chronic obstructive pulmonary disease) Onset Date: 04/02/18 Current Visit: No Status: Acute Qualifiers: COPD type: unspecified COPD Qualified Code(s): J44.9 - Chronic obstructive pulmonary disease, unspecified (3) CAD (coronary artery disease) Onset Date: 05/25/17 Current Visit: Yes Status: Chronic Qualifiers: Coronary Disease-Associated Artery/Lesion type: unspecified vessel or lesion type [place] vs. transplanted heart: [place] heart Associated angina: without angina Qualified Code(s): I25.10 - Atherosclerotic heart disease of [place] coronary artery without angina pectoris (4) Hyperlipidemia Onset Date: 04/02/18 Current Visit: No Status: Chronic Qualifiers: Hyperlipidemia type: unspecified Qualified Code(s): E78.5 - Hyperlipidemia, unspecified (5) Hypertension Onset Date: 04/02/18 Current Visit: Yes Status: Chronic Qualifiers: Hypertension type: primary hypertension Qualified Code(s): I10 - Essential (primary) hypertension (6) Tobacco abuse Onset Date: 04/02/18 Current Visit: Yes Status: Chronic - Plan -IV vancomycin and cefepime for skin infection. Follow wound cultures -Wound care consult -IV pain management -NPO. General surgery consulting -Glucose monitoring and control -Monitor and replete electrolytes as per protocol -Reconcile and continue home medications -Heparin for VTE prophylaxis -Full code - Advance Directives Does patient have a Living Will: No Does patient have a Durable POA for Healthcare: No
[2022-01-13] MEDS ORDERED: VANCOMYCIN 1 GM/VIAL ONE (22:58)
[2022-01-13] MEDS ORDERED: VANCOMYCIN 500 MG/VIAL ONE (22:59)
[2022-01-13] MEDS ORDERED: NA CHLORIDE 0.9% 250 ML ONE (23:00)
[2022-01-13] MEDS: NA CHLORIDE 0.9% 1,000 ML IV SCH (23:40)
[2022-01-13 23:50] VITALS: BMI 28.3
[2022-01-14] MEDS: HEPARIN 5000 UNIT/ML 1 ML VIAL SQ SCH ×3 (01:00→16:23)
[2022-01-14] MEDS: MORPHINE 2 MG/ML SYR IV PRN ×3 (04:15→22:24)
[2022-01-14 05:27] LABS: Urine Appearance Clear (Clear); Urine Bilirubin Negative (Negative); Urine Blood Negative (Negative); Urine Color Yellow (Yellow); Urine Glucose Negative (Negative); Urine Protein Negative (Negative); Urine Urobilinogen 0.2 mg/dL (0.2-1.0)
[2022-01-14 05:29] LABS: Urine Microscopic Reflex NO UMIC
[2022-01-14 06:34] LABS: Absolute Lymphocytes (CBC) 3.4 K/uL (0.7-4.9); Hematocrit 41.8 % (36.0-45.0); Lymphocytes % 31.1 % (15.3-44.8); MPV 7.1 fL (7.6-11.3); RBC Red Blood Cell Count 4.39 M/uL (3.86-4.86)
[2022-01-14 06:45] LABS: Phosphorus 4.1 mg/dL (2.5-4.9); Potassium 4.1 mmol/L (3.5-5.1)
[2022-01-14] MEDS: CEFEPIME 2 GM in NA CHLORIDE 0.9% 100 ML IV SCH ×2 (08:53→20:19)
[2022-01-14] MEDS ORDERED: CEFEPIME 2 GM VIAL ONE (08:57)
[2022-01-14] MEDS ORDERED: Ringers Lactate 1,000 ML IV ONE (12:16)
[2022-01-14] MEDS: SODIUM HYPOCHLORITE 0.25% 473 ML ONE ×4 (13:04→13:45)
[2022-01-14] MEDS ORDERED: FENTANYL CITR 100 MCG/2 ML ONE (13:13)
[2022-01-14] MEDS ORDERED: LIDOCAINE 2% MPF 5 ML VIAL ONE (13:13)
[2022-01-14] MEDS ORDERED: propofoL 200 MG/20 ML VIAL IV ONE (13:13)
[2022-01-14] MEDS: BUPIVACAINE 0.25% PF 10 ML VIAL ONE ×2 (13:25→13:35)
[2022-01-14] MEDS ORDERED: ONDANSETRON 4 MG/2 ML VIAL ONE ×2 (13:27→14:21)
[2022-01-14] MEDS ORDERED: KETOROLAC 30 MG/ML INJ ONE (13:27)
[2022-01-14] MEDS ORDERED: dexAMETHasone 10 MG/ML VIAL ONE (13:28)
--- NOTE | 2022-01-14 14:03 | P.OP ---
Preoperative diagnosis: Infected Skin of LEFT inframmary crease - hidradenitis Postoperative diagnosis: Infected Skin of LEFT inframmary crease - hidradenitis Primary procedure: Excisional Debridement of Infected Skin of LEFT inframmary crease - hidrade Anesthesia: GETA + Local Estimated blood loss: <5cc Findings: necrosis / infection of LEFT breast skin ~ hidradenitis appearance Complications: None Transferred to: Recovery Room Condition: Good
[2022-01-14] MEDS ORDERED: ALBUTEROL 2.5 MG/3 ML NEB SOL ONE (14:11)
[2022-01-14] MEDS ORDERED: HYDROCODONE/APAP 5/325 MG TAB PO PRN (14:11)
[2022-01-14] MEDS: MORPHINE 4 MG/ML SYR ONE ×4 (14:15→14:34)
--- NOTE | 2022-01-14 15:03 | P.PN ---
Subjective Date of Service: 01/14/22 Chief Complaint: Cellulitus Patient has no new complaint. She has been afebrile. Physical Examination - Vital Signs Temperature: 98.0 F Blood Pressure: 118/65 Pulse: 70 Respirations: 16 Pulse Ox (%): 98 - Physical Exam General: Alert, In no apparent distress, Oriented x3, Obese HEENT: Mucous membr. moist/pink Neck: JVD not distended Respiratory: Clear to auscultation bilaterally, Normal air movement Cardiovascular: No edema, Regular rate/rhythm, Normal S1 S2 Gastrointestinal: Normal bowel sounds, Soft and benign, Non-distended, No tenderness Musculoskeletal: No swelling Integumentary: Erythema (Erythematous rash beneath the left breast.) Neurological: Normal strength at 5/5 x4 extr - Studies Laboratory Data (last 24 hrs) 01/13/22 16:39: WBC 9.3, Hgb 15.0, Hct 44.6, Plt Count 228 01/13/22 16:39: Sodium 136, Potassium 4.2, BUN 12, Creatinine 1.03, Glucose 169 H, Magnesium 2.0, Total Bilirubin 0.4, AST 11 L, ALT 22, Alkaline Phosphatase 57, Lipase 96 Assessment And Plan - Current Problems (Diagnosis) (1) Cellulitis of left breast Current Visit: Yes Status: Acute (2) CAD (coronary artery disease) Onset Date: 05/25/17 Current Visit: Yes Status: Chronic Qualifiers: Coronary Disease-Associated Artery/Lesion type: unspecified vessel or lesion type [place] vs. transplanted heart: [place] heart Associated angina: without angina Qualified Code(s): I25.10 - Atherosclerotic heart disease of [place] coronary artery without angina pectoris (3) Hypertension Onset Date: 04/02/18 Current Visit: Yes Status: Chronic Qualifiers: Hypertension type: primary hypertension Qualified Code(s): I10 - Essential (primary) hypertension (4) COPD (chronic obstructive pulmonary disease) Onset Date: 04/02/18 Current Visit: No Status: Acute Qualifiers: COPD type: unspecified COPD Qualified Code(s): J44.9 - Chronic obstructive pulmonary disease, unspecified (5) Diabetes mellitus Current Visit: No Status: Acute Qualifiers: Diabetes mellitus type: type 2 Diabetes mellitus half-way insulin use: without half-way use Diabetes mellitus complication status: with other specified complication Qualified Code(s): E11.69 - Type 2 diabetes mellitus with other specified complication - Plan Patient seen by Dr. Ford who recommended surgery for debridement. Hidradenitis suspected Continue current antibiotics. Wound care. Follow cultures. Pain management as needed. Aggressive blood sugar control-insulin sliding scale. Continue home antihypertensives. COPD is stable.
--- NOTE | 2022-01-14 15:42 | CON ---
Date of Consultation: 01/13/2022 Reason For Consultation: Cellulitis under the left breast. Brief History Of Present Illness: The patient is a 66-year-old female with a past medical history of CHF, COPD, hypertension, CVA, and radiation exposure from her father who apparently had been exposed to nuclear energy in the past. She has noted significant pain, swelling, and redness under bilatera l breasts, which have been going on since she was young. These typically will swell, become red, ten pamela and ultimately resolve in time; however, beginning approximately 8 days ago, she is noted the are a under her left breast has not improved at all. It got significantly worse, red, tender. She was g iven prescription for antifungal cream, which had showed no significant improvement from her primary care doctor and now she presents to the ER with complaints of severe pain, redness, tenderness, drain age, and skin changes with central discoloration. She has had additionally nausea and vomiting and h eadache with this associated. Past Medical History: As described above with hypertension, COPD, CHF, CVA, bilateral breast wounds in the past, stroke, UT, anxiety, hyperlipidemia. Past Surgical History: Included a hernia repair of the lower abdomen x2, cholecystectomy, appendecto my with appendiceal cancer, hysterectomy, rotator cuff surgery, polypectomy. Social History: She is . She has 3 children. Smoking, she is an every day cigarette smoker. Denies alcohol or recreational drug use. Family History: Significant for radiation exposure to her father who had multiple forms of cancer in cluding throat cancer. Her mother had lung disease, heart disease, and cancer. Her sister had heart disease and cancer and lung disease as well. Review of Systems: Ten-point review of systems other than HPI she denies. Physical Examination: Vital Signs: At the time of my examination; her BMI is 28.4. Her vital signs were blood pressure wa s 129/60, pulse was 60, respiratory rate 16, temperature 98.0, O2 sats were 90% on nasal cannula oxyg en. General: She is awake, alert, and oriented. Psychiatric: She is appropriate. Conversive, but appears very uncomfortable and pain. HEENT: She is otherwise normocephalic. Her sclerae are anicteric. Her mucous membranes are somewha t dry. Her oropharynx is clear. Neck: Supple without JVD. Chest: Expansion and excursion. Cardiovascular: Regular rate and rhythm. Pulmonary: Clear to auscultation bilaterally. Abdomen: Soft with well-healed surgical scars. Extremities: No clubbing, cyanosis, edema. Skin: Warm and dry in the vast majority areas. Focused examination of the chest wall and breast are a shows cellulitic changes to the left chest wall with central clearing consistent with necrosis to t he skin. There is sloughing of these multiple patchy areas on the left directly at the inframammary crease on the left. There is a small open cut on the right inframammary crease, which appears to be dry and healed at this time with respect to the left; however, there appears to be a significant redn ess and swelling to this area. There was some cream, which was wiped off, which appeared to be nysta tin cream. She states that the redness continued to progress while taking the nystatin and the pain was significantly worse extending into the breast and onto the chest wall. She states that the pain has progressively worse to the point of severity of almost a 9 to 10 level at its peak. Pain medicat ion does help keeping under control by report. Laboratory Data: Revealed a white blood cell count of 9.3, hemoglobin of 15.0, hematocrit of 44.6, p latelet count was 228. Her neutrophils were 83%. Her PT 10.8, INR 0.98. Her sodium 136, potassium 4.2, chloride 108, carbon dioxide 28, BUN 12, creatinine 1.03, glucose is 169. Her alkaline phosphat ase 57, lipase is 96. UA was essentially negative. She had a chest x-ray performed on 01/13/2022, o fficially read as no acute intrathoracic process suspected. Assessment And Plan: This is a 66-year-old female, who comes in with left inframammary crease infect ed draining wound and severe pain in this area, not responsive to antibiotic and antifungal treatment . 1.IV fluid hydration. 2.Pain control. 3.Continue antibiotics. 4.Try local wound care. If unsuccessful or progression continues, we will consider surgical interve ntion with a wide local debridement of this area. The patient agrees to proceed as indicated. I hav e explained the risks, benefits, and alternatives of this plan including, but not limited to bleeding , infection, damage to surrounding tissues, ongoing wound care, need for further operation and proced ures. The patient agreed to proceed as indicated. All questions were answered. The patient also wa s considering having a breast reduction surgery due to her chronic breast issues as described as well . Thank you for this interesting consult. JUDY/RICHELLE Voice ID: [id number] Report ID: [id number]
[2022-01-14] MEDS: NA CHLORIDE 0.9% 1,000 ML IV SCH (17:29)
[2022-01-14] MEDS: TRAMADOL HCL 50 MG TAB PO PRN (20:17)
[2022-01-14] MEDS ORDERED: VANCOMYCIN 1.25 GM in NA CHLORIDE 0.9% 250 ML IVPB SCH (23:00)
--- NOTE | 2022-01-14 23:48 | OP ---
Date of Procedure: 01/14/2022 Surgeon: Syed Ford MD, Preoperative Diagnosis: Infected skin of the left inframammary crease concerning for hidradenitis. Postoperative Diagnosis: Infected skin of the left inframammary crease concerning for hidradenitis. Procedure Performed: Excisional debridement of infected skin of the left inframammary crease consist ent with possible hidradenitis. Anesthesia: General endotracheal plus local with 0.25% Marcaine. Estimated Blood Loss: 5 cc. Findings: Superficial necrosis and infection of the left breast inframammary crease consistent with hidradenitis, skin changes, size of wound of approximately 15 x 9 cm down in the subcutaneous fat. Complications: None. Disposition: The patient transferred to recovery room in good condition. Procedure In Detail: After informed consent was obtained, patient was brought to the operating room, prepped and draped in usual sterile fashion. After adequate anesthesia achieved, an elliptical inci rafael for approximately 15 cm x 9 cm following the left inframammary crease was taken down with a 15 b lade down to subcutaneous tissues. Electrocautery was used to dissect circumferentially around throu gh all the area of affected skin. I then dissected down to the subcutaneous fat and removed this ell ipse of skin, sent off for pathologic examination. The area was then copiously irrigated. Hemostasi s was achieved with electrocautery. The skin was then reapproximated with 2-0 nylon sutures in inter rupted fashion. A sterile dressing was placed over the top. The patient tolerated the procedure without evidence of complication and transferred to PACU in good condition. All counts wer e correct at the end of the case. TK/MODL Voice ID: [id number] Report ID: [id number]
[2022-01-15] MEDS: HEPARIN 5000 UNIT/ML 1 ML VIAL SQ SCH ×2 (00:48→08:22)
[2022-01-15] MEDS ORDERED: ALBUTEROL 2.5 MG/3 ML NEB SOL IH PRN (00:54)
[2022-01-15] MEDS: ALPRAZOLAM 0.5 MG TABLET PO SCH ×3 (01:20→13:23)
[2022-01-15 03:58] LABS: Absolute Lymphocytes (CBC) 0.6 K/uL (0.7-4.9); Hematocrit 41.6 % (36.0-45.0); Lymphocytes % 5.1 % (15.3-44.8); MPV 7.5 fL (7.6-11.3); RBC Red Blood Cell Count 4.29 M/uL (3.86-4.86)
[2022-01-15] MEDS: TRAMADOL HCL 50 MG TAB PO PRN ×3 (04:06→17:09)
[2022-01-15 04:08] LABS: Potassium 4.5 mmol/L (3.5-5.1)
[2022-01-15 04:49] LABS: Blood Morphology Comment NOT SEEN (NOT SEEN); Platelet Estimate ADEQ; White Blood Cell Scan OK (OK)
[2022-01-15] MEDS: NA CHLORIDE 0.9% 1,000 ML IV SCH (05:00)
[2022-01-15] MEDS: CEFEPIME 2 GM in NA CHLORIDE 0.9% 100 ML IV SCH (08:21)
[2022-01-15] MEDS ORDERED: METOPROLOL TAR 25 MG TAB PO SCH (09:00)
[2022-01-15] MEDS ORDERED: FAMOTIDINE 20 MG TAB PO SCH (09:00)
[2022-01-15 09:34] VITALS: O2SAT 97
[2022-01-15] MEDS ORDERED: MUPIROCIN 2% OINT 22GM TUBE TOP SCH (11:51)
--- NOTE | 2022-01-15 12:54 | EKG ---
Test Date: 2022-01-13 Test Time: 17:28:09 [place]: ALP MEASUREMENT RESULTS: Intervals: Rate: 49 OH: 148 QRSD: 88 QT: 430 QTc: 388 Nixon: P: 71 OH: 148 QRS: 72 T: 43 INTERPRETIVE STATEMENTS: Sinus bradycardia Otherwise normal ECG Compared to ECG 04/01/2018 11:18:00 Sinus rhythm no longer present Electronically Signed On 01-15-22 12:52:03 CDT by Segundo Potts
--- NOTE | 2022-01-15 13:22 | RAD REPORT ---
EXAM DESCRIPTION: RAD - Abdomen 1 View (KUB) - 01/15/2022 1:10 pm CLINICAL HISTORY: Constipation Pain COMPARISON: No comparisons FINDINGS: The bowel gas pattern is non-obstructive. No evidence of free air or pneumatosis. No suspi cious calcifications. No significant bony findings. Moderate constipation. IMPRESSION: Moderate constipation.
[2022-01-15] MEDS ORDERED: MAGNESIUM CITRATE 300 ML BOT PO ONE (14:00)
--- NOTE | 2022-01-15 14:40 | P.PN ---
Subjective Date of Service: 01/15/22 Chief Complaint: Cellulitus Subjective: Improving (pain much improved from LEFT breast excision site) Physical Examination - Vital Signs Temperature: 97.4 F Blood Pressure: 106/54 Pulse: 61 Respirations: 20 Pulse Ox (%): 99 - Physical Exam General: Alert, In no apparent distress, Cooperative Respiratory: Clear to auscultation bilaterally, Normal air movement Cardiovascular: Regular rate/rhythm Integumentary: Other (LEFT breast incision is clean and dry, sutures in place. RIGHT breast inframmary crease has small cellulitis.) Assessment And Plan - Current Problems (Diagnosis) (1) Cellulitis of left breast Current Visit: Yes Status: Acute Plan: - continue daily wound care with xeroform, 4x4 gauze - return to clinic in 1 week for ongoing wound check - continue antibiotics - continue medical management - muporicin to RIGHT breast inframammary crease.
--- NOTE | 2022-01-15 16:12 | P.DS ---
Admission Date: 01/13/22 Discharge Date: 01/15/22 Disposition: ROUTINE DISCHARGE Discharge Condition: FAIR Reason for Admission: Cellulitus - Problems (1) Cellulitis of left breast Current Visit: Yes Status: Acute (2) CAD (coronary artery disease) Onset Date: 05/25/17 Current Visit: Yes Status: Chronic Qualifiers: Coronary Disease-Associated Artery/Lesion type: unspecified vessel or lesion type [place] vs. transplanted heart: [place] heart Associated angina: without angina Qualified Code(s): I25.10 - Atherosclerotic heart disease of [place] coronary artery without angina pectoris (3) Hypertension Onset Date: 04/02/18 Current Visit: Yes Status: Chronic Qualifiers: Hypertension type: primary hypertension Qualified Code(s): I10 - Essential (primary) hypertension (4) COPD (chronic obstructive pulmonary disease) Onset Date: 04/02/18 Current Visit: No Status: Acute Qualifiers: COPD type: unspecified COPD Qualified Code(s): J44.9 - Chronic obstructive pulmonary disease, unspecified (5) Diabetes mellitus Current Visit: No Status: Acute Qualifiers: Diabetes mellitus type: type 2 Diabetes mellitus long-term insulin use: without long-term use Diabetes mellitus complication status: with other specified complication Qualified Code(s): E11.69 - Type 2 diabetes mellitus with other specified complication Brief History of Present Illness: Patient is a 66-year-old female with PMH of CHF, COPD, hypertension, CVA who presented to the ED with complaints of a rash under her left breast for 8 days. She describes it as red, tender and with discharge. Dr. Sandra prescribed nystatin cream which has not been helping. She also reports nausea and vomiting. Labs within normal limits. She was given Zofran, 1 L fluid, morphine, Unasyn, and wound care in ED. Patient admitted to hospitalist for IV antibiotics and general surgery consult. Hospital Course: Patient admitted to the medical floor and started on IV cefepime and vancomycin. Seen by general surgery-Dr. Ford who performed debridement and recommended wound care. Blood cultures revealed no growth, wound culture showed no organism. Patient deemed stable for discharge per Dr. Ford. She is discharged with broad-spectrum antibiotic-Augmentin and doxycycline. She is also prescribed mupirocin cream for wound dressing. She was complaining of 5 days of constipation which was successfully treated with mag citrate. Patient had a bowel movement today. She is deemed stable for discharge. Vital Signs/Physical Exam: Temp Pulse Resp BP Pulse Ox 97.4 F 61 20 106/54 L 99 01/15/22 14:39 01/15/22 14:39 01/15/22 14:39 01/15/22 14:39 01/15/22 14:39 General: In no apparent distress, Obese Neck: JVD not distended Respiratory: Clear to auscultation bilaterally, Normal air movement Cardiovascular: No edema, Regular rate/rhythm, Normal S1 S2 Gastrointestinal: Normal bowel sounds, Soft and benign, Non-distended Musculoskeletal: No swelling Integumentary: No cyanosis Laboratory Data at Discharge: WBC 11.0 K/uL (4.3-10.9) H 01/15/22 03:09 Hgb 13.7 g/dL (12.0-15.0) 01/15/22 03:09 Hct 41.6 % (36.0-45.0) 01/15/22 03:09 Plt Count 186 K/uL (152-406) 01/15/22 03:09 PT 10.8 SECONDS (9.5-12.5) 01/13/22 19:15 INR 0.98 01/13/22 19:15 Sodium 136 mmol/L (136-145) 01/15/22 03:09 Potassium 4.5 mmol/L (3.5-5.1) 01/15/22 03:09 BUN 13 mg/dL (7-18) 01/15/22 03:09 Creatinine 0.92 mg/dL (0.55-1.3) 01/15/22 03:09 Glucose 204 mg/dL (74-106) H 01/15/22 03:09 Phosphorus 4.1 mg/dL (2.5-4.9) 01/14/22 06:20 Magnesium 2.0 mg/dL (1.8-2.4) 01/14/22 06:20 Total Bilirubin 0.4 mg/dL (0.2-1.0) 01/13/22 16:39 AST 11 U/L (15-37) L 01/13/22 16:39 ALT 22 U/L (12-78) 01/13/22 16:39 Alkaline Phosphatase 57 U/L (45-117) 01/13/22 16:39 Lipase 96 U/L (73-393) 01/13/22 16:39 Home Medications: Metoprolol Tartrate [Lopressor*] 25 mg PO BID 03/04/12 Simvastatin [Zocor] 40 mg PO BEDTIME 03/04/12 ALPRAZolam [Xanax*] 0.5 mg PO TID 01/12/16 Albuterol Neb [Proventil 0.083% Neb Soln] 2.5 mg IH QID PRN 04/02/18 Famotidine [Pepcid] 20 mg PO BID 04/02/18 Amox/Clavulanate [Augmentin 875-125 Tab] 1 each PO BID #14 tab 01/15/22 Doxycycline Hyclate 100 mg PO BID #14 capsule 01/15/22 Mupirocin Oint [Bactroban 2% Ointment*] 1 appl TOP BID #1 tube 01/15/22 traMADol HCL [Ultram*] 50 mg PO Q6H PRN #20 tab 01/15/22 New Medications: Amox/Clavulanate [Augmentin 875-125 Tab] 1 each PO BID #14 tab Mupirocin Oint [Bactroban 2% Ointment*] 1 appl TOP BID #1 tube Doxycycline Hyclate 100 mg PO BID #14 capsule traMADol HCL [Ultram*] 50 mg PO Q6H PRN #20 tab PRN Reason: Pain Scale 5-7 (Moderate) Diet: AHA Activity: Ad madhavi Followup: Jude Sandra MD [Primary Care Provider] - Syed Ford MD [ACTIVE - CAN ADMIT] - 1 Week Time spent managing pt's care (in minutes): 33
[2022-01-15 16:56] VITALS: BP 112/65; TEMP 97.5
[2022-01-15] MEDS ORDERED: ATORVASTATIN 20 MG TAB PO SCH (21:00)
== END 2022-01-15 17:23 | disposition home or self-care (01) | DRG 572 ==
LOC: ER 14:54 → ERHOLD 18:10 → 4TH 21:30
PROVIDERS: ADMIT Internal Medicine; ATTEND Internal Medicine
PROC: 0JB60ZZ Excision of Chest Subcutaneous Tissue and Fascia, Open Approach (ICD-10-PCS; principal; 2022-01-14 13:00)
DX: N61.0 Mastitis without abscess (principal); L73.2 Hidradenitis suppurativa; I11.0 Hypertensive heart disease with heart failure; J44.9 Chronic obstructive pulmonary disease, unspecified; F41.9 Anxiety disorder, unspecified; E78.5 Hyperlipidemia, unspecified; F17.200 Nicotine dependence, unspecified, uncomplicated; I25.10 Atherosclerotic heart disease of native coronary artery without angina pectoris; Z20.822 Contact with and (suspected) exposure to COVID-19; F17.210 Nicotine dependence, cigarettes, uncomplicated; E11.9 Type 2 diabetes mellitus without complications; K59.00 Constipation, unspecified; I25.2 Old myocardial infarction; Z86.73 Personal history of transient ischemic attack (TIA), and cerebral infarction without residual deficits
CPT/HCPCS: 36415; 71045; 74018; 80048; 80076; 81003; 83690; 83735; 83880; 84100; 84484; 85025; 85610; 87040; 87070; 87205; 88304; 93005; 96365; 96375; 99285; J0690; J0692; J1100; J1644; J2270; J2405; J2704; J3010; J3370; J3590; J7030; J7050; J7120; U0003

== ENCOUNTER 2022-03-31 07:00 | Day surgery (SDC) | payer OTHER ==
[2022-03-29 12:05] LABS: SARS-CoV-2 Antigen Rapid Res Negative (Negative)
[2022-03-31] MEDS ORDERED: Ringers Lactate 1,000 ML IV ONE (07:30)
[2022-03-31] MEDS ORDERED: LIDOCAINE 1% MPF 5 ML VIAL ONE (08:05)
[2022-03-31] MEDS ORDERED: propofoL 200 MG/20 ML VIAL IV ONE ×2 (08:05→08:14)
[2022-03-31] MEDS ORDERED: MIDAZOLAM HCL 2 MG/2 ML INJ ONE (08:15)
[2022-03-31] MEDS ORDERED: FENTANYL CITR 100 MCG/2 ML ONE (08:15)
[2022-03-31] MEDS ORDERED: LIDOCAINE 2% MPF 5 ML VIAL ONE (08:16)
[2022-03-31] MEDS ORDERED: ONDANSETRON 4 MG/2 ML VIAL ONE (08:16)
--- NOTE | 2022-03-31 08:38 | ENDO RPT ---
[address], [address] COLONOSCOPY PROCEDURE REPORT EXAM DATE: 03/31/2022 PATIENT NAME: Kary Day MR #: [id number] BIRTHDATE: 1955 ATTENDING: Syed Ford DR STATUS: outpatient BARTENDER HELPER: Matthew Fuentes RN and Roscoe Parker [facility] INDICATIONS: The patient is a 67 yr old Female here for a colonoscopy due to colon cancer screening PROCEDURE PERFORMED: Colonoscopy with biopsy - cold polypectomy MEDICATIONS: Per Anesthesia. ESTIMATED BLOOD LOSS: None CONSENT: The patient understands the risks and benefits of the procedure and understands that these risks include, but are not limited to: sedation, allergic reaction, infection, perforation and/or bleeding. Alternative means of evaluation and treatment include, among others: physical exam, x-rays, and/or surgical intervention. The patient elects to proceed with this endoscopic procedure. DESCRIPTION OF PROCEDURE: During intra-op preparation period all mechanical medical equipment was checked for proper function. Hand hygiene and appropriate measures for infection prevention was taken. Procedure, possible complications, alternatives including, but not limited to possibility of bleeding, perforation, tear, infection, sepsis, need for surgery, need for blood transfusion, were explained to the patient. After the risks, benefits and alternatives of the procedure were thoroughly explained, Informed consent was verified, confirmed and timeout was successfully executed by the treatment team. The patient was placed in the left lateral position. A digital rectal exam was performed and revealed internal hemorrhoids and A digital rectal exam was performed and revealed external hemorrhoids. After appropriate level of anesthesia, the scope was passed. The EC-[id number] ([id number]) endoscope was introduced through the anus and advanced to the cecum, which was identified by both the appendix and ileocecal valve. The quality of the prep was fair. The instrument was then slowly withdrawn as the colon was fully examined. Scope withdrawal time was 11 minutes. COLON FINDINGS: Three smooth sessile polyps measuring between 1 - 9 mm in size were found at the cecum, hepatic flexure and splenic flexure. A polypectomy was performed with cold forceps and hot snare cautery. The resection was complete, the polyp tissue was completely retrieved and sent to histology. Retroflexed views revealed no abnormalities. The scope was then completely withdrawn from the patient and the procedure terminated. ADVERSE EVENTS: There were no complications. IMPRESSIONS: 1. Three sessile polyps measuring 1 mm in size were found at the cecum; polypectomy was performed with cold forceps; polypectomy was performed using snare cautery 2. Internal hemorrhoids 3. External hemorrhoids RECOMMENDATIONS: 1. avoid NSAIDS for 2 weeks 2. await biopsy results 3. fiber rich diet 4. follow-up: office 2 week(s) 5. Monitor for any evidence of rectal bleeding. 6. increase dietary water 7. yearly hemoquant 8. hemorrhoidal hygiene 9. yearly hemoccult starting in 4 years RECALL: for Colonoscopy, pending biopsy results. Syed Ford DR eSigned: Syed Ford DR 03/31/2022 8:37 AM cc: CPT CODES: ICD9 CODES: PATIENT NAME: Kary Day MR#: [id number]
[2022-03-31 10:16] VITALS: TEMP 96.9
[2022-03-31 10:17] VITALS: BP 110/67; O2SAT 96
== END 2022-03-31 09:08 | disposition home or self-care (01) ==
LOC: OR 07:00
PROVIDERS: ATTEND Surgery
PROC: 0DBL8ZX Excision of Transverse Colon, Via Natural or Artificial Opening Endoscopic, Diagnostic (ICD-10-PCS; 2022-03-31)
PROC: 0DBK8ZX Excision of Ascending Colon, Via Natural or Artificial Opening Endoscopic, Diagnostic (ICD-10-PCS; 2022-03-31)
PROC: 0DBH8ZX Excision of Cecum, Via Natural or Artificial Opening Endoscopic, Diagnostic (ICD-10-PCS; principal; 2022-03-31 08:00)
DX: Z12.11 Encounter for screening for malignant neoplasm of colon (principal); D12.0 Benign neoplasm of cecum; D12.3 Benign neoplasm of transverse colon; K64.8 Other hemorrhoids; K64.4 Residual hemorrhoidal skin tags; Z20.822 Contact with and (suspected) exposure to COVID-19
CPT/HCPCS: 36415; 88305; 87811; 45380; 45385; J2704; J7120; J2405; J2250; J3010

== ENCOUNTER 2022-06-02 08:10 | Day surgery (SDC) | payer OTHER ==
[2022-05-30 11:41] LABS: Absolute Lymphocytes (CBC) 1.8 K/uL (0.7-4.9); Hematocrit 41.7 % (36.0-45.0); Lymphocytes % 25.1 % (15.3-44.8); MPV 7.1 fL (7.6-11.3); RBC Red Blood Cell Count 4.38 M/uL (3.86-4.86)
[2022-05-30 12:01] LABS: Potassium 4.1 mmol/L (3.5-5.1)
[2022-05-30 12:05] LABS: Protime INR 0.92
[2022-06-02] MEDS ORDERED: KETOROLAC 30 MG/ML INJ ONE ×2 (08:58→10:31)
[2022-06-02] MEDS ORDERED: Ringers Lactate 1,000 ML IV ONE ×2 (08:58→12:22)
[2022-06-02] MEDS ORDERED: CEFAZOLIN SODIUM 2 GM/VIAL ONE (08:58)
[2022-06-02] MEDS ORDERED: BUPIVACAINE 0.25% PF 30 ML VIAL ONE (10:20)
[2022-06-02] MEDS ORDERED: VECURONIUM 10 MG/VIAL IV ONE (10:31)
[2022-06-02] MEDS ORDERED: propofoL 200 MG/20 ML VIAL IV ONE (10:31)
[2022-06-02] MEDS ORDERED: FENTANYL CITR 100 MCG/2 ML ONE (10:31)
[2022-06-02] MEDS ORDERED: MIDAZOLAM HCL 2 MG/2 ML INJ ONE (10:31)
[2022-06-02] MEDS ORDERED: NS 0.9% VIAL 10 ML ONE ×3 (10:31→11:16)
[2022-06-02] MEDS ORDERED: ONDANSETRON 4 MG/2 ML VIAL ONE ×2 (10:32→13:54)
[2022-06-02] MEDS ORDERED: dexAMETHasone 4 MG/ML VIAL ONE (10:32)
[2022-06-02] MEDS ORDERED: LIDOCAINE 2% MPF 5 ML VIAL ONE (10:33)
[2022-06-02] MEDS ORDERED: dexAMETHasone 10 MG/ML VIAL ONE (12:26)
[2022-06-02] MEDS ORDERED: EPINEPHRINE 1 MG/ML VIAL ONE (12:27)
[2022-06-02] MEDS ORDERED: BUPIVACAINE 0.25% PF 10 ML VIAL ONE (12:27)
--- NOTE | 2022-06-02 13:04 | P.OP ---
Preoperative diagnosis: Bilateral Mastodynia Postoperative diagnosis: Bilateral Mastodynia Primary procedure: Bilateral Simple Mastectomy Anesthesia: GETA + Local + Block Estimated blood loss: ~75cc Specimen: Bilateral Breasts Findings: pendulous breasts Complications: None Drain(s): Other (ROSEMARIE x 2) Transferred to: Recovery Room Condition: Good
[2022-06-02] MEDS ORDERED: NEOSTIGMINE 1 MG/ML -5 ML ONE (13:36)
[2022-06-02] MEDS ORDERED: GLYCOPYRROLATE 0.2 MG/ML SYR ONE (13:36)
[2022-06-02] MEDS ORDERED: MEPERIDINE HCL 25 MG/ML SYR ONE (14:02)
[2022-06-02] MEDS: HYDROMORPHONE HCL 1 MG/ML INJ ONE ×2 (14:24→14:31)
[2022-06-02 14:31] VITALS: TEMP 97.1
[2022-06-02] MEDS ORDERED: HYDROCODONE/APAP 7.5/325 MG TAB ONE (15:15)
[2022-06-02 15:55] VITALS: BP 121/56; O2SAT 97
--- NOTE | 2022-06-02 22:35 | OP ---
Date of Procedure: 06/02/2022 Surgeon: Syed Ford MD, Preoperative Diagnosis: Bilateral mastodynia. Postoperative Diagnosis: Bilateral mastodynia. Procedure Performed: Bilateral simple mastectomy. Anesthesia: General endotracheal plus local with 0.25% Marcaine plus regional block performed by [facility]. Estimated Blood Loss: Less than 75 cc. Specimen: Right and left breasts. Findings: Pendulous breasts noted. Complications: None. Implants: None. Drains: ROSEMARIE skin level negative pressure wound therapy dressings applied. Disposition: The patient was transferred to recovery room in good condition. Procedure In Detail: After informed consent was obtained, the patient was brought to the operating r oom, prepped and draped in the usual sterile fashion. After adequate anesthesia was achieved, I jovanna rcated the bilateral breasts using a marking pen in an elliptical fashion for a simple non-skin spari ng mastectomy. I then inspected the bilateral breasts for equal tissue removal. I then used a 10 bl jacinta on the right breast initially down through subcutaneous tissues. I circumferentially dissected d own following Micah's ligaments down to the prepectoral fascia. Circumferentially, I extended the d issection up to the level of the infraclavicular tissue medially to the sternal border and inferiorly to the chest wall/rectus insertion laterally. I stayed out of the clavipectoral fascia. Therefore, sparing lymph nodes in the axilla and not entering the axilla throughout the procedure. I then circ umferentially dissected the breast tissue starting medially, removing the tissue off the prepectoral fascia without incident or complication. Hemostasis was required only using electrocautery and a sin gle 3-0 Vicryl stitch in a bleeding vessel from the pectoralis clinical tech branch in the midportion of the pectoralis muscle. I then placed a marking stitch; short stitch superior, long lateral on the s pecimen, sent it off for pathologic examination. After which, it was ligated in its entirety. I the n irrigated the skin copiously and the deep tissues multiple times. Hemostasis was ensured at this p oint. I then reapproximated the deep dermal plane using interrupted 3-0 Vicryl sutures. I then clos ed the skin using a former Monocryl in a running fashion and placed a dressing over the top temporari ly. I then turned my attention to the left breast in a similar fashion as was previously demarcated by following the incisions. I dissected down through subcutaneous tissues and skin using a 10 blade. I then circumferentially dissected down following the same anatomic borders of the infraclavicular position using electrocautery medially to the border of the sternum, inferiorly to the rectus inserti on following the inframammary crease and laterally to stay out of the pectoral fascia. I then remove d the breast tissue off the prepectoral fascia in a similar fashion and sent it off for pathologic ex amination. After placing a short stitch superior, long stitch lateral as a marking stitch, hemostasi s was achieved in a similar fashion using only electrocautery at this point, with no additional measu res required. I then irrigated the cavity once again and hemostasis was easily achieved at this poin t. I then reapproximated the deep dermal plane using a 3-0 Vicryl suture and the skin was closed wit h a 4-0 Monocryl in running fashion. ROSEMARIE was placed at the top as a negative pressure wound as clos ure assist device after Monocryl was used to close the skin. I then applied the ROSEMARIE to the contrala teral side and patient had bilateral ROSEMARIE applied. At this point, the sterile dressings were applied and the patient was being positioned for placement of a regional block by the Anesthesia Team and sh e will have a pressure dressing applied to the chest in the form of an Breezy bandage over the chest. T he patient tolerated the procedure well without evidence of complication and transferred to PACU in good condition. All counts were correct at the end of the case. JUDY/RICHELLE Voice ID: [id number] Report ID: [id number]
== END 2022-06-02 15:50 | disposition home or self-care (01) ==
LOC: OR 08:10
PROVIDERS: ATTEND Surgery
PROC: 0HTV0ZZ Resection of Bilateral Breast, Open Approach (ICD-10-PCS; principal; 2022-06-02 10:00)
DX: N62 Hypertrophy of breast (principal); N64.4 Mastodynia; J44.9 Chronic obstructive pulmonary disease, unspecified; I10 Essential (primary) hypertension; K21.9 Gastro-esophageal reflux disease without esophagitis; Z88.1 Allergy status to other antibiotic agents; J45.909 Unspecified asthma, uncomplicated
CPT/HCPCS: 85025; 80048; 36415; 85610; 88305; 85730; 19303; J2704; J1100 ×2; J2001; J2250; J3010; J2175; A4216 ×3; J0171; J1170; J2710; J7120 ×2; J2405 ×2; 88307

== ENCOUNTER → 2023-08-03 | Emergency (ER) | payer OTHER ==
[~2023-08-03] MED LIST: LIDOCAINE 1% MPF 5 ML VIAL ONE
--- OUTSIDE RECORDS SUMMARY | 2023-08-03 11:08 | XMS REPORT | Continuity of Care Document ---
Author Name Unknown Address [address] [place] [address] thconnect Address [address] [place] [address] [place] [address] Care Team Providers Care Political Science Professor Name Role Phone [email or web address] Attending Clinician Unavaila ble [email or web address] Admitting Clinician Unavaila ble Encounters Start Date/Time End Date/Time Encounter Type Admission Type Attending Clinicians Care Facility Care Department Encounter ID Source 2023-06-08 00:00:00 2023-06-08 00:00:00 Outpatient [email or web address] [facility] [id number] [facility]
--- NOTE | 2023-08-03 12:19 | RAD REPORT ---
EXAM DESCRIPTION: US - Extremity Nonvascular Complete - 08/03/2023 11:51 am CLINICAL HISTORY: Right inguinal/pubic abscess COMPARISON: None FINDINGS: Contains increased vascularity. 1.3 x 0.9 x 1.8 centimeter hypoechoic mass containing sept ations. The mass lies 2 millimeters from the skin surface. A portion of the mass extends to the skin. IMPRESSION: 1.8 centimeter mass subcutaneous tissues right inguinal/pubic region consistent with abs cess
--- NOTE | 2023-08-03 13:30 | EDPHYS ---
Physician Documentation [facility] Name: Kary Day Age: 68 yrs Sex: Female : 1955 Arrival Date: 08/03/2023 Time: 11:05 Bed 9 Private MD: ED Physician Mal Gooden HPI: 08/03 12:29 This 68 yrs old Female presents to ER via Ambulatory with complaints of Right leg rn ingrown hair. 12:29 the patient presents with a swollen area of the Right groin. Description: The affected rn area is small, erythematous, fluctuant, swollen, warm. Onset: The symptoms/episode began/occurred 3 day(s) ago. Possible cause(s): unknown. Modifying factors: the symptoms are alleviated by nothing, the symptoms are aggravated by squeezing the lesion and expressing the contents. Severity of symptoms: At their worst the symptoms were moderate, in the emergency department the symptoms are unchanged. The patient has not experienced similar symptoms in the past. Patient reports right inguinal swelling, possible boil, started 3 days ago, started as an ingrown hair but now enlarged. Painful to the touch. No fever. No drainage. Call Dr. Ford's office and directed here.. Historical: - Allergies: 11:24 Levaquin IV; hb 11:24 Paxil; hb 11:24 Tetanus Vaccines \T\ Toxoid; hb 11:24 Zoloft; hb - PMHx: 11:24 CANCER OF APPENDIX; CHF; Anxiety; COPD; CVA; CVA; Hypertension; Myocardial infarction; hb precancerous colon polyps; - Immunization history:: Adult Immunizations up to date. - Social history:: Smoking status: Patient reports the use of cigarette tobacco products, smokes one pack cigarettes per day. - Family history:: not pertinent. - Hospitalizations: : No recent hospitalization is reported. ROS: 12:29 Constitutional: Negative for fever, chills, and weight loss, Skin: Positive for right rn inguinal abscess or swollen area Exam: 12:29 Constitutional: This is a well developed, well nourished patient who is awake, alert, rn and in no acute distress. Cardiovascular: Regular rate and rhythm. No pulse deficits. Skin: 2 cm area of fluctuance right inguinal region, superficial, no surrounding cellulitis or streaking MS/ Extremity: Pulses equal, no cyanosis. Neuro: Awake and alert, GCS 15 Vital Signs: 11:20 BP 118 / 74; Pulse 85; Resp 20; Temp 97.7(O); Pulse Ox 98% on R/A; Weight 80.74 kg; hb Height 5 ft. 3 in. ; Pain 9/10; 11:20 Body Mass Index 31.53 (80.74 kg, 160.02 cm) hb 11:20 Pain Scale: Adult hb Procedures: 13:28 I \T\ D: Incision and drainage was performed for an abscess of the right pelvis Prepped rn with Betadine, Anesthetized with 5 ml's 1% Lidocaine. Incised with #11 blade. Drained moderate amount purulent fluid. Packed with iodoform gauze, Dressing: sterile 4x4 gauze, the patient tolerated the procedure well. MDM: 11:09 Patient medically screened. rn 13:29 Differential diagnosis: abscess. Data reviewed: vital signs, nurses notes, radiologic rn studies, ultrasound, and as a result, I will discharge patient. Counseling: I had a detailed discussion with the patient and/or guardian regarding the historical points, exam findings, and any diagnostic results supporting the discharge/admit diagnosis, radiology results, the need for outpatient follow up, to return to the emergency department if symptoms worsen or persist or if there are any questions or concerns that arise at home. Response to treatment: the patient's symptoms have markedly improved after treatment. Special discussion: I discussed with the patient/guardian in detail that at this point there is no indication for admission to the hospital. It is understood, however, that if the symptoms persist or worsen the patient needs to return immediately for re-evaluation. 08/03 11:44 Order name: Extremity Nonvascular Complete; Complete Time: 12:21 EDMS 08/03 12:39 Order name: Incision \T\ Drainage Setup; Complete Time: 12:52 rn 08/03 13:29 Order name: Wound dressing; Complete Time: 14:08 rn Administered Medications: 13:45 Drug: Lidocaine Infiltration (1 %) 1 vials 5 ml Infiltration once; to bedside Volume: 5 ko1 ml; Route: Infiltration; Disposition Summary: 08/03/23 13:29 Discharge Ordered Notes: Location: Home rn Problem: new rn Symptoms: have improved rn Condition: Stable rn Diagnosis - Cutaneous abscess of groin rn Followup: rn - With: Syed Ford MD - When: 5 - 6 days - Reason: Wound Recheck, Recheck today's complaints, Re-evaluation by your physician Discharge Instructions: - Discharge Summary Sheet rn - Skin Abscess rn - Incision and Drainage rn - Incision and Drainage, Care After rn Forms: - Medication Reconciliation Form rn - Thank You Letter rn - 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 - Prescription Opioid Use rn - Patient Portal Instructions rn - Leadership Thank You Letter rn Prescriptions: - Diflucan 150 mg Oral Tablet - take 1 tablet ORAL route one time for 1 day; 1 tablet; Refills: 0, Product rn Selection Permitted - Bactrim DS 800-160 mg Oral Tablet - take 1 tablet ORAL route every 12 hours for 10 days; 20 tablet; Refills: 0, rn Product Selection Permitted Signatures: Dispatcher [employer] EDMS Mal Gooden MD MD rn Baxter, Heather, RN RN Iram Vaca RN RN ko1 Corrections: (The following items were deleted from the chart) 11:44 11:27 Extrmty Nonvasular [id number] ordered. EDND EDMS
--- NOTE | 2023-08-03 13:30 | ER ---
Nurse's Notes [facility] Name: Kary Day Age: 68 yrs Sex: Female : 1955 Arrival Date: 08/03/2023 Time: 11:05 Bed 9 Private MD: Diagnosis: Cutaneous abscess of groin Presentation: 08/03 11:20 Chief complaint: Abscess on right groin x 3 days. Coronavirus screen: At this time, the hb client does not indicate any symptoms associated with coronavirus-19. Ebola Screen: No symptoms or risks identified at this time. Initial Sepsis Screen: Does the patient meet any 2 criteria? No. Patient's initial sepsis screen is negative. Does the patient have a suspected source of infection? No. Patient's initial sepsis screen is negative. Risk Assessment: Do you want to hurt yourself or someone else? Patient reports no desire to harm self or others. Onset of symptoms was August 01, 2023. 11:20 Method Of Arrival: Ambulatory hb 11:20 Acuity: ISACC 3 hb Historical: - Allergies: 11:24 Levaquin IV; hb 11:24 Paxil; hb 11:24 Tetanus Vaccines \T\ Toxoid; hb 11:24 Zoloft; hb - PMHx: 11:24 CANCER OF APPENDIX; CHF; Anxiety; COPD; CVA; CVA; Hypertension; Myocardial infarction; hb precancerous colon polyps; - Immunization history:: Adult Immunizations up to date. - Social history:: Smoking status: Patient reports the use of cigarette tobacco products, smokes one pack cigarettes per day. - Family history:: not pertinent. - Hospitalizations: : No recent hospitalization is reported. Screenin:08 [facility] ED Fall Risk Assessment (Adult) History of falling in the last 3 months, cp4 including since admission No falls in past 3 months (0 pts) Confusion or Disorientation No (0 pts) Intoxicated or Sedated No (0 pts) Impaired Gait No (0 pts) Mobility Assist Device Used No (0 pt) Altered Elimination No (0 pt) Score/Fall Risk Level 0 - 2 = Low Risk Oriented to surroundings, Maintained a safe environment, Educated pt \T\ family on fall prevention, incl call for assistance when getting out of bed, Assessed \T\ reinforced patient's understanding of fall precautions, Hourly rounding (assess needs \T\ fall precautionary measures) done. Abuse screen: Denies threats or abuse. Nutritional screening: No deficits noted. Tuberculosis screening: No symptoms or risk factors identified. Assessment: 14:08 General: Appears in no apparent distress. Behavior is calm, cooperative, appropriate cp4 for age. Pain: Pain currently is 9 out of 10 on a pain scale. Vital Signs: 11:20 BP 118 / 74; Pulse 85; Resp 20; Temp 97.7(O); Pulse Ox 98% on R/A; Weight 80.74 kg; hb Height 5 ft. 3 in. ; Pain 9/10; 11:20 Body Mass Index 31.53 (80.74 kg, 160.02 cm) hb 11:20 Pain Scale: Adult hb ED Course: 11:08 Patient arrived in ED. im 11:09 Mal Gooden MD is Attending Physician. rn 11:24 Triage completed. hb 11:25 Arm band placed on. hb 11:53 Extremity Nonvascular Complete In Process Unspecified. EDMS 12:48 Iram Lopez RN is Primary Nurse. ko1 13:29 Syed Ford MD is Referral Physician. rn 14:08 Bed in low position. Call light in reach. Side rails up X 1. cp4 14:08 Provided Education on: skin abscess. cp4 14:08 No provider procedures requiring assistance completed. Patient did not have IV access cp4 during this emergency room visit. Administered Medications: 13:45 Drug: Lidocaine Infiltration (1 %) 1 vials 5 ml Infiltration once; to bedside Volume: 5 ko1 ml; Route: Infiltration; Medication: 14:08 VIS not applicable for this client. cp4 Outcome: 13:29 Discharge ordered by . rn 14:08 Discharged to home ambulatory, cp4 14:08 Condition: stable 14:08 Discharge instructions given to patient, Instructed on discharge instructions, follow up and referral plans. medication usage, Demonstrated understanding of instructions, follow-up care, medications, Prescriptions given X 2, 14:16 Patient left the ED. cp4 Signatures: Dispatcher [employer] EDMS Mal Gooden MD MD rn Baxter, Heather RN RN Iram Lopez, RN RN ko1 Margot Tate Medina Kruger cp4
[2023-08-03 14:48] VITALS: BP 118/74; TEMP 97.7; O2SAT 98
== END ==
LOC: ER 11:05
PROC: 0H9AXZZ Drainage of Inguinal Skin, External Approach (ICD-10-PCS; principal; 2023-08-03)
DX: L02.214 Cutaneous abscess of groin (principal); F17.210 Nicotine dependence, cigarettes, uncomplicated; Z88.1 Allergy status to other antibiotic agents; Z88.7 Allergy status to serum and vaccine; Z88.8 Allergy status to other drugs, medicaments and biological substances; Z85.89 Personal history of malignant neoplasm of other organs and systems
CPT/HCPCS: 76881; 99283; 10060; J2001